=== PATIENT | male | born 1970 | race Caucasian/White ===

== ENCOUNTER 2017-06-20 21:19 | Inpatient (IN) ==
--- NOTE | 2017-06-20 21:31 | Emergency Department Note ---
Disposition Clinical Impression: Metastatic melanoma, Abdominal pain, Anemia, Hypokalemia, Elevated lipase, Pathological fracture in neoplastic disease, Melanoma Disposition: Admitted As Inpatient Referrals: Lashae Pop MD [Family Provider] - Zeus Bowen MD [Primary Care Provider] - Forms: ED Satisfaction Letter, Work/School Release General Adult HPI - General Chief complaint: ED Abdominal Pain Stated complaint: Abdominal Pain Time Seen by Provider: 06/20/17 21:30 Source: patient, family Limitations: no limitations - History of Present Illness HPI Narrative: 39-year-old male with a history of metastatic melanoma reports emergency department complaining of abdominal pain. He has had progressive abdominal pain over the last 4 days. There is no history of trauma or hernia, no flank pain or bloody urine. There has been no vomiting or diarrhea. The patient denies any chest pain. He describes some shortness of breath with exertion however. No cough coughing up blood or bleeding of any sort. No leg swelling or pain. The patient has had no fever. No difficulty moving the arms or legs and apparently. He is currently not anticoagulated. The patient does use opiate medication for pain control. There is no history of prior abdominal surgery. There is no history of rash or acute injury. The patient describes upper abdominal pain in general. No history of difficulty voiding. Pain Scale: 4 - Related Data Home Medications Medication Instructions Recorded Confirmed OXcarbazepine [Trileptal] 300 mg PO TID 04/21/17 06/21/17 Previous Rx's Medication Instructions Recorded Ondansetron [Zofran] 8 mg PO Q8HR PRN #60 tablet 05/15/17 FentaNYL PATCH [Duragesic] 50 mcg TD Q72H 3 Days #1 patch.td72 06/07/17 Allergies Allergy/AdvReac Type Severity Reaction Status Date / Time No Known Allergies Allergy Verified 06/20/17 21:21 All systems ED: reviewed and negative except as stated. Past Medical History - Past Medical History Medical history: Reports: asthma, cancer, kidney stones, seizures Surgical history: Reports: no surgical history Psychiatric history: Reports: no psych history - Social History Smoking Status: Never smoker Smokeless Tobacco Status: No Alcohol use: Reports: none Drug use: Reports: none Physical Exam - General Limitations: no limitations General appearance: alert, in no apparent distress - Head Head exam: atraumatic, normocephalic, normal inspection - Eye Eye exam: Present: normal appearance, PERRL, EOMI. Absent: scleral icterus, conjunctival injection, miosis, mydriasis - ENT ENT exam: normal exam, normal oropharynx, mucous membranes moist, TM's normal bilaterally, normal external ear exam - Neck Neck exam: Present: normal inspection, full ROM, trachea midline - Chest Chest inspection: Present: normal inspection, symmetric chest wall rise. Absent : tenderness - Respiratory Respiratory exam: Present: normal lung sounds bilaterally. Absent: respiratory distress, wheezes, accessory muscle use, prolonged expiratory phase - Cardiovascular Cardiovascular exam: Present: regular rate, normal rhythm, normal heart sounds - Abdominal Exam Abdominal exam: Present: soft, tenderness, distention, diminished bowel sounds. Absent: guarding, rebound, rigidity, Garcia's sign, tenderness at McBurney's Point, ascites, pulsatile mass Abdominal tenderness: Present: RUQ, LUQ, epigastrium, moderate - Extremities Exam Extremities exam: Present: normal inspection, full ROM. Absent: tenderness, normal capillary refill, pedal edema, joint swelling, calf tenderness - Expanded Lower Extremity Exam Lower leg exam: Absent: Homans' sign Neurovascular/Tendon exam: Present: normal capillary refill. Absent: motor deficit, sensory deficit, tendon deficit, extremity cold to touch, pallor - Back Exam Back exam: Present: normal inspection, full ROM. Absent: tenderness, CVA tenderness (R), CVA tenderness (L), vertebral tenderness - Neurological Exam Neurological exam: Present: alert, oriented X3, CN II-XII intact. Absent: motor sensory deficit - Psychiatric Psychiatric exam: Present: normal affect, normal mood - Skin Skin exam: Present: warm, dry, intact, normal color. Absent: rash, cyanosis, diaphoresis, erythema, pallor, mottled Course Vital Signs Temperature 98.1 F 06/20/17 21:21 Pulse Rate 137 06/20/17 21:21 Respiratory Rate 20 06/20/17 21:21 Blood Pressure 127/91 06/20/17 21:21 O2 Sat by Pulse Oximetry 96 06/20/17 21:21 Temperature 98.1 F 06/20/17 21:21 Pulse Rate 119 06/21/17 00:26 Respiratory Rate 16 06/21/17 00:26 Blood Pressure 139/104 06/21/17 00:26 O2 Sat by Pulse Oximetry 96 06/20/17 21:21 Oxygen Delivery Oxygen Delivery Room Air Medical Decision Making - MDM Narrative Medical decision making narrative: The patient appears to have worsening metastatic malignancy throughout the chest and abdomen, he appears to have sacral pathologic fractures as well as a pubic ramus pathologic fracture. The patient has not elevated lipase, is anemic , has hypokalemia and has been having significant discomfort. He has been tachycardic in the emergency department with elevated blood pressure, he has a fentanyl patch on his received 100 g of fentanyl and is still obtained no relief. Based on the patient's worsening malignancy despite oncologic treatment , pain uncontrolled on current regimen, and apparent new onset pathologic fractures, I thought it be appropriate to admit the patient to the hospital. He is agreeable. I reviewed the case with the oncologist bi solutions architect who concurs that admission for further evaluation and pain control would be appropriate under the medical service with oncologic consultation. I discussed the case with the hospitalist on-call who has accepted the patient to his care. He patient is currently stable pending admission. Persistent tachycardia has been noted. An EKG has been ordered but has not yet been obtained. The patient is not describing chest pain and I do not suspect PE or acute coronary syndrome, or sepsis, rather pain-related tachycardia. Further evaluation per the admitting physician and hospitalist team. - Lab Data Lab results reviewed: Yes I reviewed the patient's lab results. Result diagrams: 06/20/17 21:45 06/20/17 21:45 Lab Results 06/20/17 06/20/17 06/20/17 Range/Units 21:45 21:45 21:45 WBC 9.1 (4.3-11.1) K/mcL RBC 3.65 L (4.19-5.50) M/mcL Hgb 10.2 L (12.9-16.9) g/dL Hct 31.0 L (37.5-50.1) % MCV 84.9 (83.0-100.0) fL MCH 27.9 L (28.0-33.3) pg MCHC 32.9 (31.6-35.5) g/dL RDW 15.8 H (11.5-14.5) % Plt Count 172 (140-400) K/mcL MPV 10.1 (9.4-12.4) fL Seg Neutrophils % 64.0 % Band Neutrophils % 6.0 H (0-4) % Lymphocytes % 20.0 % Monocytes % 2.0 % Metamyelocytes % 4.0 H (0) % Myelocytes % 4.0 H (0) % Neutrophils # 6.4 (1.6-8.9) K/mcL Lymphocytes # 1.8 (0.6-4.6) K/mcL Monocytes # 0.2 (0.0-1.3) K/mcL Nucleated RBCs/100 WBC 0.2 H (0) /100 WBC Reactive Lymphocytes Present A (Not Present) Platelet Estimate Normal (Normal) PT 14.7 H (9.4-12.1) Seconds INR 1.4 APTT 25.8 L (26.0-36.0) Seconds Sodium 133 L (136-145) mEq/L Potassium 3.2 L (3.5-5.1) mEq/L Chloride 98 (98-107) mEq/L Carbon Dioxide 23 (23-29) mEq/L BUN 11 (6-20) mg/dL Creatinine 0.60 L (0.70-1.30) mg/dL Est GFR ( Amer) > 60 (> 60) Est GFR (Non-Af Amer) > 60 (> 60) BUN/Creatinine Ratio 18 (6-26) Glucose 121 H (70-105) mg/dL Calculated Osmolality 277 L (280-300) Lactic Acid (0.5-2.2) mmol/L Calcium 7.7 L (8.6-10.3) mg/dL Total Bilirubin 0.8 (0.3-1.0) mg/dL Direct Bilirubin 0.3 H (0.0-0.2) mg/dL Indirect Bilirubin 0.5 (0.0-1.2) mg/dL AST 25 (13-39) Units/L ALT 26 (7-52) Units/L Alkaline Phosphatase 321 H (34-104) Units/L Serum Total Protein 6.1 L (6.4-8.9) g/dL Albumin 2.9 L (3.5-5.7) g/dL Globulin 3.2 (2.4-3.5) g/dL Albumin/Globulin Ratio 0.9 L (1.1-2.2) Lipase 134 H (11-82) Units/L Urine Color (Yellow) Urine Clarity (Clear) Urine pH (5.0-8.0) pH Units Ur Specific [place] (1.010-1.025) Urine Protein (Neg-Trace) mg/dL Urine Glucose (UA) (Normal) mg/dL Urine Ketones (Negative) mg/dL Urine Blood (Negative) Urine Nitrite (Negative) Urine Bilirubin (Negative) Urine Urobilinogen (Normal) mg/dL Ur Leukocyte Esterase (Negative) Urine Microscopic RBC (0-3) per hpf Urine Microscopic WBC (0-3) per hpf Ur Squamous Epith Cells (None-Few) per lpf Urine Bacteria (None-Few) per hpf Hyaline Casts (None-Few) per lpf Ur Culture Indicated? (NO) 06/20/17 06/20/17 Range/Units 21:45 23:41 WBC (4.3-11.1) K/mcL RBC (4.19-5.50) M/mcL Hgb (12.9-16.9) g/dL Hct (37.5-50.1) % MCV (83.0-100.0) fL MCH (28.0-33.3) pg MCHC (31.6-35.5) g/dL RDW (11.5-14.5) % Plt Count (140-400) K/mcL MPV (9.4-12.4) fL Seg Neutrophils % % Band Neutrophils % (0-4) % Lymphocytes % % Monocytes % % Metamyelocytes % (0) % Myelocytes % (0) % Neutrophils # (1.6-8.9) K/mcL Lymphocytes # (0.6-4.6) K/mcL Monocytes # (0.0-1.3) K/mcL Nucleated RBCs/100 WBC (0) /100 WBC Reactive Lymphocytes (Not Present) Platelet Estimate (Normal) PT (9.4-12.1) Seconds INR APTT (26.0-36.0) Seconds Sodium (136-145) mEq/L Potassium (3.5-5.1) mEq/L Chloride (98-107) mEq/L Carbon Dioxide (23-29) mEq/L BUN (6-20) mg/dL Creatinine (0.70-1.30) mg/dL Est GFR ( Amer) (> 60) Est GFR (Non-Af Amer) (> 60) BUN/Creatinine Ratio (6-26) Glucose (70-105) mg/dL Calculated Osmolality (280-300) Lactic Acid 2.2 (0.5-2.2) mmol/L Calcium (8.6-10.3) mg/dL Total Bilirubin (0.3-1.0) mg/dL Direct Bilirubin (0.0-0.2) mg/dL Indirect Bilirubin (0.0-1.2) mg/dL AST (13-39) Units/L ALT (7-52) Units/L Alkaline Phosphatase (34-104) Units/L Serum Total Protein (6.4-8.9) g/dL Albumin (3.5-5.7) g/dL Globulin (2.4-3.5) g/dL Albumin/Globulin Ratio (1.1-2.2) Lipase (11-82) Units/L Urine Color Yellow (Yellow) Urine Clarity Clear (Clear) Urine pH 6.5 (5.0-8.0) pH Units Ur Specific [place] 1.027 H (1.010-1.025) Urine Protein Trace (Neg-Trace) mg/dL Urine Glucose (UA) Normal (Normal) mg/dL Urine Ketones Negative (Negative) mg/dL Urine Blood Negative (Negative) Urine Nitrite Negative (Negative) Urine Bilirubin Negative (Negative) Urine Urobilinogen Normal (Normal) mg/dL Ur Leukocyte Esterase Negative (Negative) Urine Microscopic RBC 0-3 (0-3) per hpf Urine Microscopic WBC 0-3 (0-3) per hpf Ur Squamous Epith Cells Many H (None-Few) per lpf Urine Bacteria None Seen (None-Few) per hpf Hyaline Casts None Seen (None-Few) per lpf Ur Culture Indicated? NO (NO) - Radiology Data Radiology results reviewed: Yes I reviewed the patient's radiology results.
[2017-06-20] MEDS ORDERED: 0.9 % Sodium Chloride 1,000 ML IVC ONE (21:33)
[2017-06-20 22:12] LABS: Hemoglobin 10.2 g/dL (12.9-16.9); Mean Corpuscular HGB Conc 32.9 g/dL (31.6-35.5); Mean Corpuscular Hemoglobin 27.9 pg (28.0-33.3); Mean Corpuscular Volume 84.9 fL (83.0-100.0); Mean Platelet Volume 10.1 fL (9.4-12.4); Nucleated Red Blood Cells 0.2 /100 WBC (0); Platelet Count 172 K/mcL (140-400); Red Blood Count 3.65 M/mcL (4.19-5.50); Red Cell Distribution Width 15.8 % (11.5-14.5)
[2017-06-20 22:21] LABS: INR 1.4; Prothrombin Time 14.7 Seconds (9.4-12.1)
[2017-06-20 22:24] LABS: Activated Partial Thrombo Time 25.8 Seconds (26.0-36.0)
[2017-06-20 22:26] LABS: Alanine Aminotransferase 26 Units/L (7-52); Albumin 2.9 g/dL (3.5-5.7); Albumin/Globulin Ratio 0.9 (1.1-2.2); Alkaline Phosphatase 321 Units/L (34-104); Aspartate Amino Transferase 25 Units/L (13-39); BUN/Creatinine Ratio 18 (6-26); Bilirubin,Direct 0.3 mg/dL (0.0-0.2); Bilirubin,Indirect 0.5 mg/dL (0.0-1.2); Bilirubin,Total 0.8 mg/dL (0.3-1.0); Blood Urea Nitrogen 11 mg/dL (6-20); Calcium 7.7 mg/dL (8.6-10.3); Carbon Dioxide 23 mEq/L (23-29); Chloride 98 mEq/L (98-107); Globulin 3.2 g/dL (2.4-3.5); Glucose 121 mg/dL (70-105); Lipase 134 Units/L (11-82); Osmolality,Calculated 277 (280-300); Potassium 3.2 mEq/L (3.5-5.1); Sodium 133 mEq/L (136-145); Total Protein 6.1 g/dL (6.4-8.9); eGFR For African Americans > 60 (> 60); eGFR For Non-African Americans > 60 (> 60)
[2017-06-20] MEDS ORDERED: *HR* FentaNYL (PF) 100 MCG/2 ML VIAL IVP ONE (22:26)
[2017-06-20] MEDS ORDERED: Ondansetron 4 MG/2 ML VIAL IVP ONE (22:26)
[2017-06-20 22:38] LABS: Lymphocytes # 1.8 K/mcL (0.6-4.6); Monocytes # 0.2 K/mcL (0.0-1.3); Neutrophils # 6.4 K/mcL (1.6-8.9)
[2017-06-20 22:42] LABS: Platelet Estimate Normal (Normal); Reactive Lymphocytes Present (Not Present)
[2017-06-21] MEDS ORDERED: *HR* FentaNYL (PF) 100 MCG/2 ML VIAL IVP ONE (00:10)
[2017-06-21 00:17] LABS: Bilirubin,Urine Negative (Negative); Blood,Urine Negative (Negative); Clarity,Urine Clear (Clear); Color,Urine Yellow (Yellow); Glucose,Urine (UA) Normal (Normal); Ketones,Urine Negative (Negative); Leukocyte Esterase,Urine Negative (Negative); Nitrite,Urine Negative (Negative); PH,Urine 6.5 pH Units (5.0-8.0); Protein,Urine Trace mg/dL (Neg-Trace); Specific Gravity,Urine 1.027 (1.010-1.025); Urobilinogen,Urine Normal (Normal)
[2017-06-21 00:19] LABS: Bacteria,Urine None Seen per hpf (None-Few); Hyaline Casts,Urine None Seen per lpf (None-Few); RBC,Urine 0-3 per hpf (0-3); Squamous Epithelial Cell,Urine Many per lpf (None-Few); WBC,Urine 0-3 per hpf (0-3)
[2017-06-21] MEDS ORDERED: *HR* LORazepam 2 MG/ML VIAL IVP ONE (00:38)
[2017-06-21] MEDS ORDERED: Acetaminophen 325 MG TABLET PO PRN ×2 (01:23→02:14)
[2017-06-21] MEDS ORDERED: Naloxone 0.4 MG/ML INJ IVP PRN ×2 (01:23→02:14)
[2017-06-21] MEDS ORDERED: Morphine Oral CONC 5 MG/0.25 ML ORAL.SYG PO PRN ×3 (01:41→02:32)
[2017-06-21] MEDS ORDERED: *HR* FentaNYL (PF) 100 MCG/2 ML VIAL IVP PRN ×2 (01:41→02:14)
[2017-06-21] MEDS ORDERED: 0.9 % Sodium Chloride 1,000 ML IVC SCH ×2 (01:45→10:15)
[2017-06-21] MEDS ORDERED: metroNIDAZOLE 500 MG TABLET PO SCH ×2 (01:45→02:15)
[2017-06-21] MEDS ORDERED: Ondansetron 4 MG/2 ML VIAL IVP PRN ×2 (01:47→02:15)
--- NOTE | 2017-06-21 01:58 | Internal Med History&Physical ---
<Khang Brown Traci - Last Filed: 06/21/17 01:49> Date of Encounter: 06/21/17 Time of Encounter: 00:25 Assessment and Plan (1) Pathological fracture in neoplastic disease Status: Acute Patient presented with back pain and abdominal pain in the setting of stage IV metastatic melanoma. CT shows progression of metastatic disease in his chest, abdomen, and pelvis with increasing size in number of lesions. - Fracture of the right sacrum and right inferior pubic ramus. Patient is admitted for pain control and further oncological evaluation. Continue fentanyl patch. Add Roxanol and IV fentanyl as needed for pain. MiraLAX and senna plus for bowel regimen. We will make patient NPO and provide IV fluids with D5 half-normal saline. Consult oncology for further evaluation and management. Qualifiers: Site of pathological fracture: other site Encounter type: initial encounter Qualified Code(s): M84.58XA - Pathological fracture in neoplastic disease, other specified site, initial encounter for fracture (2) Metastatic melanoma Status: Acute Plan as above. (3) Enteritis Status: Acute Patient reports that his abdomen is more distended, diffuse tenderness. No peritoneal signs. CTA shows mural thickening involving the terminal ileum, compatible with enteritis. Consider metastatic exertion extension as well. Will make patient NPO, provide pain control, provide nausea control, and place on Flagyl. (4) Elevated lipase Status: Acute Lipase is elevated at 134. Patient symptoms and imaging did not suggest pancreatitis. Trend lipase and continue to follow patient's symptoms. (5) Hypokalemia Status: Acute Potassium 3.2. Will replace. Likely secondary to poor PO intake. Check magnesium in the morning. (6) DVT prophylaxis Status: Acute Subcutaneous heparin Internal Medicine - H&P: HPI Chief complaint: Abdominal Pain Admitted From: Emergency Dept History of present illness: Mr. Hale is a 47 year old male with PMH of metastatic melanoma stage IV, and seizures, presented to the emergency department with complaint of a 5-6 day history of abdominal pain and a 2-3 week history of low back pain. He states that his abdominal pain is diffuse, and he feels that his belly is more distended and tight and normal. He denies any aggravating or alleviating factors. Associated symptoms include some dry heaving and dyspnea while sitting and on exertion. He reports no changes in bowel habits. Deniesnausea, vomiting, hematochezia, or melena. No prior abdominal surgery. He states that his back pain has gradually been getting worse. He denies any injury or trauma to the area. He will intermittently get some radiating pain down into his legs. He denies any weakness, numbness, tingling, loss of sensation. Denies any loss of bowel or bladder function. Denies other complaints. Denies fevers , chills, syncope, falls, headache, change in vision, chest pain, cough, hematemesis, dysuria, hematuria, leg pain/swelling. Does report that he has been on immunotherapy and follows with [facility]. Past Med Surg Social Fam HX - Past Medical History Medical history: asthma, cancer, kidney stones, seizures Psychiatric history: no psych history - Past Surgical History Surgical History: no surgical history - Social History Smoking Status: Never smoker Smokeless Tobacco Status: No Alcohol use: none Drug use: none Internal Medicine - H&P: Meds OXcarbazepine [Trileptal] 300 mg PO TID 04/21/17 [History] Ondansetron [Zofran] 8 mg PO Q8HR PRN #60 tablet 05/15/17 [Rx] FentaNYL PATCH [Duragesic] 50 mcg TD Q72H 3 Days #1 patch.td72 06/07/17 [Rx] 3 Allergy/AdvReac Type Severity Reaction Status Date / Time No Known Allergies Allergy Verified 06/20/17 21:21 All Systems PM: A 10-system review of systems was performed and is negative for pertinent findings except as documented above in the HPI. - Constitutional Vitals: Temp Pulse Resp BP Pulse Ox 98.1 F 119 16 139/104 96 06/20/17 21:21 06/21/17 00:26 06/21/17 00:26 06/21/17 00:26 06/20/17 21:21 General appearance: Present: mild distress, A&O X 3, answers questions appropriately - Head Head exam: Present: atraumatic, normocephalic - Eye Eye exam: Present: EOMI, PERRL, conjuntiva pink, sclera anicteric - Neck Neck exam general surgery: Present: supple, trachea midline. Absent: lymphadenopathy - Respiratory Respiratory exam: Present: CTAB. Absent: accessory muscle use, rales, rhonchi, wheezes - Cardiovascular Cardiovascular exam: Present: RRR, +S1, +S2. Absent: diastolic murmur, systolic murmur - GI/Abdominal GI/Abdominal exam: Present: distended, firm, normal bowel sounds, soft, tenderness (diffuse), no peritoneal signs. Absent: rebound, rigid - Extremities Exam Extremities exam: Present: pedal edema (Mild bilaterally), warm, radial pulses palpable and symmetrical. Absent: calf tenderness, cyanotic - Back Exam Back exam: Present: tenderness (diffusely across lower back, not well localized) . Absent: full ROM - Neurological Exam Neurological exam: Present: CN II-XII intact, oriented X3, no focal deficits. Absent: facial droop, speech deficit - Skin Skin exam: Present: dry, intact Internal Med - H&P Results - Labs CBC & Chem 7: 06/20/17 21:45 06/20/17 21:45 Labs: Short CBC 06/20/17 Range/Units 21:45 WBC 9.1 (4.3-11.1) K/mcL Hgb 10.2 L (12.9-16.9) g/dL Hct 31.0 L (37.5-50.1) % Plt Count 172 (140-400) K/mcL Neutrophils # 6.4 (1.6-8.9) K/mcL BMP 06/20/17 21:45 Sodium 133 L Potassium 3.2 L Chloride 98 Carbon Dioxide 23 BUN 11 Creatinine 0.60 L Glucose 121 H Calcium 7.7 L Liver Function 06/20/17 Range/Units 21:45 Total Bilirubin 0.8 (0.3-1.0) mg/dL Direct Bilirubin 0.3 H (0.0-0.2) mg/dL AST 25 (13-39) Units/L ALT 26 (7-52) Units/L Alkaline Phosphatase 321 H (34-104) Units/L Albumin 2.9 L (3.5-5.7) g/dL Urine 06/20/17 Range/Units 23:41 Urine Color Yellow (Yellow) Urine Clarity Clear (Clear) Urine pH 6.5 (5.0-8.0) pH Units Ur Specific [place] 1.027 H (1.010-1.025) Urine Protein Trace (Neg-Trace) mg/dL Urine Glucose (UA) Normal (Normal) mg/dL - Impressions ITS Impressions Abdomen/Pelvis CT 06/20/17 21:34 IMPRESSION: 1. Marked mural thickening involving the terminal ileum, compatible with enteritis. Metastatic extension to the bowel would be considered as well. 2. Marked progression of metastatic disease throughout the chest abdomen pelvis. 3. Evidence of pathologic fractures involving the rightward aspect of the sacrum and the right inferior pubic ramus. D/ / Chris Sidhu MD / Chris Sidhu MD Interpreting Provider: Chris Sidhu MD Chest CT 06/20/17 21:36 IMPRESSION: 1. Marked mural thickening involving the terminal ileum, compatible with enteritis. Metastatic extension to the bowel would be considered as well. 2. Marked progression of metastatic disease throughout the chest abdomen pelvis. 3. Evidence of pathologic fractures involving the rightward aspect of the sacrum and the right inferior pubic ramus. D/ / Chris Sidhu MD / Chris Sidhu MD Interpreting Provider: Chris Sidhu MD <Kaushal Burnham - Last Filed: 06/21/17 03:32> Date of Encounter: 06/21/17 Internal Medicine - H&P: HPI History of present illness: Mr. Hale is a 47 year old male All Systems PM: A 10-system review of systems was performed and is negative for pertinent findings except as documented above in the HPI. - Constitutional Vitals: Temp Pulse Resp BP Pulse Ox 98.1 F 119 16 139/104 96 06/20/17 21:21 06/21/17 00:26 06/21/17 00:26 06/21/17 00:26 06/20/17 21:21 Internal Med - H&P Results - Labs CBC & Chem 7: 06/20/17 21:45 06/20/17 21:45 - Attending Attestation I examined this patient and my medical decision-making was reviewed with the Resident Physician Dr. Brown. I agree with the documented findings, disposition and treatment plan as described except to the extent set forth below. Mr. Hale is 47 y/o M with known stage 4 melanoma with mets into Liver, and Bones , who is following with [facility] and Radio oncologist as an out pt presented to ER today c/o worsening abdominal pain. His CT of abdomen showed enteritis and metastatic disease through out the chest and abdomen. Also noticed sacral pathological fx Gen: In mild distress with pain..A,A, O x 3 Chest: Diminished BS b/l no crackles Heart: S1s2+ Abd: Soft, tender christo umbilical and RUQ region a/p 1. Acute intractable Abdominal pain 2. Acute enteritis - mostly viral 3. Worsening metastatic stage 4 melanoma Ca 4. Sacral pathological fx Aggressive pain management Heme Onc consulted Stool softeners for constipation empirical abx Flagyl for enteritis
[2017-06-21] MEDS ORDERED: *HR* FentaNYL PATCH 50 MCG PATCH TD SCH (02:00)
[2017-06-21] MEDS ORDERED: D5% in 0.45% NACL 1,000 ML IVC SCH (02:00)
[2017-06-21] MEDS ORDERED: Sennosides/Docusate Sodium TABLET PO PRN ×2 (02:00→02:15)
[2017-06-21] MEDS ORDERED: Potassium Chloride 40 MEQ, Lidocaine 1% 2 ML in D5% in Water 500 ML IVPB ONE ×2 (02:02→02:15)
[2017-06-21] MEDS: *HR* FentaNYL PATCH 50 MCG PATCH TD SCH (02:49)
[2017-06-21] MEDS: *HR* FentaNYL (PF) 100 MCG/2 ML VIAL IVP PRN ×4 (05:17→21:22)
[2017-06-21] MEDS: *HR* Heparin 5,000 UNIT/ML VIAL SQ SCH ×3 (05:23→21:23)
[2017-06-21] MEDS ORDERED: *HR* Heparin 5,000 UNIT/ML VIAL SQ SCH (06:00)
[2017-06-21] MEDS ORDERED: Sennosides/Docusate Sodium TABLET PO SCH (09:00)
[2017-06-21] MEDS ORDERED: OXcarbazepine 150 MG TABLET PO SCH (09:00)
[2017-06-21] MEDS: D5% in 0.45% NACL 1,000 ML IVC SCH (09:35)
--- NOTE | 2017-06-21 10:10 | Event Note ---
Date of Encounter: 06/21/17 Time of Encounter: 10:08 1. Sepsis 2ry to acute duodenitis 6% bands, HR 120s, lactic acid 2.2 start Cipro IV, continue IV flagyl recheck lactic acid IVF 2. Metastatic melanoma, severe disease mets both lungs, liver, spleen, with patologic fractures has received chemo, radiotherapy and immunotherapy requested to see Oncology 3. hypokalemia replete in IVF
[2017-06-21] MEDS: OXcarbazepine 150 MG TABLET PO SCH ×3 (11:21→21:23)
[2017-06-21] MEDS: *HR* Morphine Soln 10 MG/5 ML UDC PO PRN ×2 (11:45→17:52)
[2017-06-21] MEDS ORDERED: 0.9 % Sodium Chloride 500 ML IVC ONE (12:38)
--- NOTE | 2017-06-21 16:17 | Oncology Inp Consult Note ---
<Grace Henderson L - Last Filed: 06/21/17 16:57> Date of Encounter: 06/21/17 Time of Encounter: 13:00 Assessment and Plan (1) Metastatic melanoma Status: Acute Assessment and plan: Metastatic melanoma, stage IV mets to bone, lung and liver lesions, rt axillary adenopathy Started C1 nivolumab 05/09/17, C2 05/23/2017, C3 06/07/2017. He also received palliative RT from 05/11/2017 - 05/24/2017 to Right shoulder ( including T2-T4) and L4-S3, 3000 cGy to each site. He also receives Denosumab for bone health and prevention of SRE Q4 weeks, last received 06/07/17. Dr. Reynaga, treating oncologist, discussed CT imaging consistent with disease progression with patient and patients today at bedside. Considering his progression and aggressive nature of his disease, the decision was made to change treatment at this time. He is BRAF positive and a candidate for dabrafenib and trametinib therapy. This has already been ordered by Dr. Reynaga , outpatient pharmacist team is working to have this medication approved and shipped potentially overnight or denise. Once received he will plan to start medication. May plan to revisit immunotherapy with nivolumab in future, at this time nivolumbab is stopped. Continue pain control regimen with Fentanyl TD, fentanyl IVP and morphine 10 mg PO PRN. Titrate as needed. Reports adequate pain control at this time. (2) Enteritis Status: Acute Assessment and plan: CT of the abdomen and pelvis reveals marked mural thickening involving the terminal ileum, compatible with enteritis. He does report abdominal pain, distention and dry heaves, denies diarrhea or vomiting. He is tachycardic and in sepsis workup per primary team. 6% bands, HR 120s, He is on cipro and flagyl. Continue IVF. repeat lactic acid 1.5 He has received 3 cycles of immunotherapy with nivolumab and immune mediated side effects such as colitis should remain in differential, however his pain is likely also secondary to his progression, and he does not report any history of diarrhea. Will hold off on treatment with steroids at this time and continue to monitor. Please refer to Dr. Campos attestation below for additional details. - Data of Consult Patient: known to practice within the last 3 years Consult date: 06/21/17 Requesting Physician: Edd Chauhan MD Primary Care Provider: Zeus Park Family Provider: Lashae Pop - Consult Narrative Reason for consult: metastatic melanoma, stage IV History of present illness: Mr. Hale is a 47 year old male with metastatic melanoma, stage IV mets to bone, lung and liver lesions, rt axillary adenopathy Started C1 nivolumab 05/09/17, C2 05/23/2017, C3 06/07/2017. He also received palliative RT from 05/11/2017 - 05/24/2017 to Right shoulder ( including T2-T4) and L4-S3, 3000 cGy to each site. He takes Megace for appetite. He also receives Denosumab for bone health and prevention of SRE Q4 weeks , last received 06/07/17. He is BRAF positive and a candidate for dabrafenib, trametinib therapy. He presented to [facility] ER on 06/20/2017 with complaint of a 5-6 day history of abdominal pain with distention and associated dry heaving along with 2-3 week history of worsening lower back pain. CT chest, abdomen and pelvis with contrast reveals "marked mural thickening involving the terminal ileum, compatible with enteritis, Marked progression of metastatic disease throughout the chest abdomen pelvis and Evidence of pathologic fractures involving the rightward aspect of the sacrum and the right inferior pubic ramus." He has been admitted for pathological fracture pain control and treatment for enteritis. Past Med Surg Social Fam HX - Past Medical History Medical history: asthma, cancer, kidney stones, seizures Psychiatric history: no psych history - Past Surgical History Surgical History: no surgical history - Social History Smoking Status: Never smoker Smokeless Tobacco Status: No Alcohol use: none Drug use: none - Family History Mother Age at : 55 Cause of : Cancer Medications and Allergies OXcarbazepine [Trileptal] 300 mg PO TID 04/21/17 [History] Ondansetron [Zofran] 8 mg PO Q8HR PRN #60 tablet 05/15/17 [Rx] FentaNYL PATCH [Duragesic] 50 mcg TD Q72H 3 Days #1 patch.td72 06/07/17 [Rx] 3 Allergy/AdvReac Type Severity Reaction Status Date / Time No Known Allergies Allergy Verified 06/20/17 21:21 Constitutional: Present: anorexia. Absent: chills, fatigue, fever(s), frequent falls, weakness Eyes: Absent: change in vision Nose, mouth and throat: Absent: dysphagia Cardiovascular: Absent: chest pain, irregular heart rhythm, palpitations Respiratory: Present: dyspnea on exertion. Absent: cough Gastrointestinal: Present: as per HPI, abdominal pain, bloating. Absent: change in bowel habits, diarrhea, fecal incontinence, melena, nausea, vomiting Additional comments: denies dysuria or hematuria Musculoskeletal: Present: muscle weakness Integumentary: Absent: wounds Neurological: Absent: focal weakness, frequent falls Psychiatric: Present: change in appetite Hematologic/Lymphatic: Present: as per HPI Oncology - Exam - Constitutional Vitals: Temp Pulse Resp BP Pulse Ox 98.0 F 135 17 136/93 98 06/21/17 11:41 06/21/17 11:41 06/21/17 11:41 06/21/17 11:41 06/21/17 11:41 General appearance: cooperative, no acute distress, no febrile - Head Head exam: Present: atraumatic - ENT ENT exam: Present: mucous membranes moist - Respiratory Respiratory exam: Present: CTAB. Absent: respiratory distress - Cardiovascular Cardiovascular exam: Present: RRR, +S1, +S2, tachycardia - GI/Abdominal GI/Abdominal exam: Present: distended, normal bowel sounds, tenderness - Extremities Exam Extremities exam: Present: normal inspection. Absent: calf tenderness - Neurological Exam Neurological exam: Present: alert, oriented X3, no focal deficits, strengths equal and symetr throughout - Psychiatric Psychiatric exam: Present: normal affect, normal mood - Skin Skin exam: Present: dry, intact, normal color, warm Consult Discharge Plan - Plan Referrals: Zeus Bowen MD [Primary Care Provider] - Lashae Pop MD [Family Provider] - <Zeus Bowen - Last Filed: 06/22/17 08:31> Date of Encounter: 06/22/17 - Data of Consult Requesting Physician: Edd Chauhan MD Primary Care Provider: Zeus Park Family Provider: Lashae Pop - Consult Narrative History of present illness: Mr. Hale is a 47 year old male with metastatic melanoma on immunotherapy hospitalized with abdominal, back pain. Ct CAP showing progression of metastatic disease. He is hospitalized for pain control and to r/o sepsis. Abd symptoms have not worsened since hospitalization, enteritis due to progression possibility. Will start alternative therapy with BRAF/MEK inhibition once oral meds are available. He is s/p palliative RT to lumbar spine and rt shoulder metastatic lesions, with pathological fracture of sacrum and pubic ramus. I examined this patient and my medical decision-making was reviewed with the Advanced Practice Nurse, Grace Henderson. I agree with the documented findings, disposition and treatment plan as described except to the extent set forth below. Oncology - Exam - Constitutional Vitals: Temp Pulse Resp BP Pulse Ox 98.3 F 123 16 146/97 97 06/22/17 06:30 06/22/17 06:30 06/22/17 06:30 06/22/17 06:30 06/22/17 06:30 Oncology - Results Labs: Short CBC 06/22/17 Range/Units 01:27 WBC 7.6 (4.3-11.1) K/mcL Hgb 8.6 L D (12.9-16.9) g/dL Hct 27.0 L (37.5-50.1) % Plt Count 127 L (140-400) K/mcL BMP 06/22/17 01:27 Sodium 133 L Potassium 3.4 L Chloride 101 Carbon Dioxide 24 BUN 7 Creatinine 0.61 L Glucose 127 H Calcium 6.5 L
[2017-06-21] MEDS: Piperacillin/Tazobactam 3.375 GM in 0.9 % Sodium Chloride Mini Bag 100 ML IVPB SCH (18:39)
[2017-06-22] MEDS: Piperacillin/Tazobactam 3.375 GM in 0.9 % Sodium Chloride Mini Bag 100 ML IVPB SCH ×5 (00:01→23:18)
[2017-06-22] MEDS: *HR* Morphine Soln 10 MG/5 ML UDC PO PRN ×5 (00:02→22:43)
[2017-06-22 02:02] LABS: Mean Corpuscular HGB Conc 31.9 g/dL (31.6-35.5); Mean Corpuscular Hemoglobin 27.4 pg (28.0-33.3); Mean Platelet Volume 10.1 fL (9.4-12.4); Platelet Count 127 K/mcL (140-400); Red Blood Count 3.14 M/mcL (4.19-5.50); Red Cell Distribution Width 15.8 % (11.5-14.5)
[2017-06-22 02:06] LABS: Hemoglobin 8.6 g/dL (12.9-16.9)
[2017-06-22 02:18] LABS: BUN/Creatinine Ratio 11 (6-26); Blood Urea Nitrogen 7 mg/dL (6-20); Calcium 6.5 mg/dL (8.6-10.3); Carbon Dioxide 24 mEq/L (23-29); Chloride 101 mEq/L (98-107); Glucose 127 mg/dL (70-105); Osmolality,Calculated 276 (280-300); Potassium 3.4 mEq/L (3.5-5.1); Sodium 133 mEq/L (136-145); eGFR For African Americans > 60 (> 60); eGFR For Non-African Americans > 60 (> 60)
[2017-06-22] MEDS: *HR* Heparin 5,000 UNIT/ML VIAL SQ SCH ×4 (05:45→21:23)
[2017-06-22] MEDS: OXcarbazepine 150 MG TABLET PO SCH ×3 (09:22→21:23)
[2017-06-22] MEDS: *HR* FentaNYL (PF) 100 MCG/2 ML VIAL IVP PRN ×2 (09:23→15:29)
--- NOTE | 2017-06-22 09:40 | Internal Med Progress Note ---
<Coleman Guzman - Last Filed: 06/22/17 09:37> Date of Encounter: 06/22/17 Time of Encounter: 09:37 - Assessment and plan (1) Sepsis Current Visit: Yes Status: Acute Assessment and plan: 2nd enteritits unknown organism Presented with 6% bandemia, tachycardic. Continues to be tachycardic Initially treated with ciprofloxacin and Flagyl now on Zosyn. Qualifiers: Sepsis type: sepsis due to unspecified organism Qualified Code(s): A41.9 - Sepsis, unspecified organism (2) Enteritis Current Visit: Yes Status: Acute Assessment and plan: CT of abdomen pelvis shows mural thickening involving the terminal ileum compatible with enteritis and extensive metastatic disease of the bowel. We will order stool panel Continue antibiotics as stated above. Patient's abdominal pain has considerably improved. Patient denies nausea, vomiting, diarrhea. (3) Metastatic melanoma Current Visit: Yes Status: Acute Assessment and plan: Patient has history of melanoma on admission CT of the chest and abdomen pelvis showed metastasis to liver, adrenal gland, bowel, bone, lungs. Oncology consulted and plan is to start on new treatment as soon as possible. Patient is placed on fentanyl TD, fentanyl IVP and morphine tumorous by mouth when necessary for pain control. Appreciate recommendations. (4) DVT prophylaxis Current Visit: Yes Status: Acute Assessment and plan: Heparin subcutaneous (5) Hypokalemia Current Visit: Yes Status: Acute Assessment and plan: Potassium 3.4 replace today with 40 meq (6) Hx of seizure disorder Current Visit: Yes Status: Acute Assessment and plan: History of seizure disorder continue home medication. (7) Anemia Current Visit: Yes Status: Acute Assessment and plan: Presented with hemoglobin of 10.2 and after IV fluids is now 8.6. This drop is likely diagnosed no. insetting of metastatic melanoma Peripheral blood smear shows normochromic normocytic anemia. We will check iron panel and B12, folic acid. No signs of bleeding on exam. If the anemia continues to worsen will replace if hemoglobin less than 7. Qualifiers: Anemia type: unspecified type Qualified Code(s): D64.9 - Anemia, unspecified (8) Severe protein-calorie malnutrition Current Visit: Yes Status: Acute Assessment and plan: nutrition on board started supplemental nutrition (9) Pathological fracture in neoplastic disease Current Visit: Yes Status: Acute Assessment and plan: CT shows fracture of the right sacrum and right inferior pubic ramus. continue pain regimen as above Qualifiers: Site of pathological fracture: pelvis Encounter type: initial encounter Qualified Code(s): M84.550A - Pathological fracture in neoplastic disease, pelvis, initial encounter for fracture (10) Sinus tachycardia Current Visit: Yes Status: Acute Assessment and plan: 2nd to pain from metastatic disease and sepsis from enteritis improved from yesterday but not resolved telemetry shows sinus tachycardia. will give lopressor 5mg iv once. - Subjective Interval history: Patient reports his abdominal pain has improved considerably. He is tolerating his diet. He denies nausea vomiting diarrhea. He has lower extremity swelling secondary to IV fluids. Patient denies headache, chest pain, shortness of breath. He denies problems with urination or bowel movements. - Constitutional Vitals: Temp Pulse Resp BP Pulse Ox 98.3 F 123 16 146/97 97 06/22/17 06:30 06/22/17 06:30 06/22/17 06:30 06/22/17 06:30 06/22/17 06:30 General appearance: Present: mild distress, A&O X 3, answers questions appropriately - Other Additional findings: General: without distress HEENT: Moist mucous membrane Heart: Sinus tachycardia Lungs: Clear to auscultation bilaterally Abdomen: Soft nontender, nondistended positive bowel sounds Skin: warm and dry Extremities: 1+ pedal edema bilaterally Neuro: Alert oriented 3 Vascular: Pedal and radial pulses 2 out of 4 Internal Medicine: Result - Labs CBC & Chem 7: 06/22/17 01:27 06/22/17 01:27 Labs: Short CBC 06/22/17 Range/Units 01:27 WBC 7.6 (4.3-11.1) K/mcL Hgb 8.6 L D (12.9-16.9) g/dL Hct 27.0 L (37.5-50.1) % Plt Count 127 L (140-400) K/mcL BMP 06/22/17 01:27 Sodium 133 L Potassium 3.4 L Chloride 101 Carbon Dioxide 24 BUN 7 Creatinine 0.61 L Glucose 127 H Calcium 6.5 L - ABG Interpretation ABG results: PT/INR, D-dimer PT 14.7 Seconds (9.4-12.1) H 06/20/17 21:45 Consult Discharge Plan - Plan Referrals: Lashae Pop MD [Family Provider] - Zeus Bowen MD [Primary Care Provider] - <Carlos Hercules - Last Filed: 06/22/17 15:21> Date of Encounter: 06/22/17 - Constitutional Vitals: Temp Pulse Resp BP Pulse Ox 98.7 F 119 16 148/97 97 06/22/17 12:45 06/22/17 12:45 06/22/17 12:45 06/22/17 12:45 06/22/17 12:45 Internal Medicine: Result - Labs CBC & Chem 7: 06/22/17 01:27 06/22/17 01:27 Labs: Short CBC 06/22/17 Range/Units 01:27 WBC 7.6 (4.3-11.1) K/mcL Hgb 8.6 L D (12.9-16.9) g/dL Hct 27.0 L (37.5-50.1) % Plt Count 127 L (140-400) K/mcL BMP 06/22/17 01:27 Sodium 133 L Potassium 3.4 L Chloride 101 Carbon Dioxide 24 BUN 7 Creatinine 0.61 L Glucose 127 H Calcium 6.5 L - ABG Interpretation ABG results: PT/INR, D-dimer PT 14.7 Seconds (9.4-12.1) H 06/20/17 21:45 - Attending Attestation I performed an independent interview and examine this patient. I agree with the findings, assessment, and plan of Dr. Guzman, internal medicine resident. This is an unfortunate 47-year-old male with metastatic melanoma admitted for enteritis. He is on Cipro and Flagyl for concerns for infectious enteritis, which was now changed to Zosyn. There is some concern that this could also be malignancy causing the same appearance. Patient states she is feeling better today. He remains tachycardic and he is receiving ongoing IV fluids. His imaging showed unfortunately, worsening of his metastatic disease and oncology is following, and arranging for further chemotherapy. Answered all questions as best I could, and discussed the case with the patient and his . I input is reflected in Dr. Guzman's note. All else as outlined above.
[2017-06-22] MEDS ORDERED: Potassium Chloride Elixir 20 MEQ/15 ML UDC PO ONE (09:51)
[2017-06-22] MEDS ORDERED: *HR* Metoprolol 5 MG/5 ML VIAL IVP ONE (09:55)
--- NOTE | 2017-06-22 15:26 | Oncology Inp Progress Note ---
Date of Encounter: 06/22/17 Time of Encounter: 13:00 (1) Metastatic melanoma Current Visit: Yes Status: Acute Assessment and plan: Metastatic melanoma, stage IV mets to bone, lung and liver lesions, rt axillary adenopathy Started C1 nivolumab 05/09/17, C2 05/23/2017, C3 06/07/2017. He also received palliative RT from 05/11/2017 - 05/24/2017 to Right shoulder ( including T2-T4) and L4-S3, 3000 cGy to each site. He also receives Denosumab for bone health and prevention of SRE Q4 weeks, last received 06/07/17. Considering his progression and aggressive nature of his disease, the decision was made to change treatment at this time. May plan to revisit immunotherapy with nivolumab in future, at this time nivolumbab is stopped. He is BRAF positive and a candidate for dabrafenib and trametinib therapy. He will likely plan to start therapy as soon as medication is available (about 48 hours). Today I gave chemo education for dabrafenib and trametinib therapy to patient and patients at bedside. Verbal education was provided in addition to handouts with written information. General safety and precaution details were reviewed along with when to present to ER or when to notify clinic. Common side effects for dabrafenib and were reviewed which includes but is not limited to hyperglycemia, headache, hyperkeratosis and hypophosphatemia, among others. Common side effects for Trametinib were reviewed which includes elevated AST/ALT, rash, diarrhea, hypoalbuminemia, anemia and lymphedema, among others. The patient/patients were given handouts which included a list of all common and less common side effects. Patient instructed to report and new or concerning symptoms to provider team while taking these medications. Prior to initiating therapy, will need echocardiogram to establish baseline LVEF due to risk for cardiomyopathy while taking these medications. He will then plan to have repeat echos in 1 month and every 2-3 months thereafter while on medications. Continue pain control regimen with Fentanyl TD, fentanyl IVP and morphine 10 mg PO PRN. May need to titrate fentanyl patch dose to allow proper pain control without IV medication in preparation for discharge home. Reports adequate pain control at this time, he is able to ambulate to bathroom. (2) Enteritis Current Visit: Yes Status: Acute Assessment and plan: CT of the abdomen and pelvis reveals marked mural thickening involving the terminal ileum, compatible with enteritis. He does report abdominal pain, distention and dry heaves, denies diarrhea or vomiting. He is tachycardic and in sepsis workup per primary team. 6% bands, HR 120s, He is on cipro, zosyn and flagyl. Continue IVF. His symptoms appear to be improving with above therapy and therefore less likely immune mediated. Dr. Reynaga recommends on holding off on steroid treatment at this time given his improvement in symptoms. No BM since Monday, he is taking miralax. May give PRN senna if needed. Oncology: Subj Interval history: Mr. Hale is resting in bed. Pain controlled at this time. His is at bedside. Chemo education given at bedside as detailed in HPI. - Constitutional Vitals: Vital Signs Temp Pulse Resp BP Pulse Ox 06/22/17 12:45 98.7 F 119 16 148/97 97 06/22/17 06:30 98.3 F 123 16 146/97 97 06/22/17 03:56 99.5 F 123 18 144/103 95 06/22/17 00:09 98.6 F 125 16 143/100 94 06/21/17 19:28 98.8 F 131 17 143/95 95 Intake and Output 06/21/17 06/22/17 06/22/17 23:59 07:59 15:59 Intake Total 100 / 950 1100 / 1100 340 / 340 Output Total 750 / 750 300 / 300 Balance 100 / 950 350 / 350 40 / 40 Intake: IV Fluids 100 / 100 1100 / 1100 100 / 100 KCl 10 MEQ In 0.9 % Sodium 1000 / 1000 Chloride 1,000 ML @ 175 mls/hr IVC .[id number] SHRUTHI Rx#:[id number] Zosyn 3.375 GM In 0.9 % Sodium 100 / 100 100 / 100 100 / 100 Chloride (Mini-Bag +) 100 ML @ 25 mls/hr IVPB Q6HR SHRUTHI Rx#: [id number] Oral 240 / 240 Output: Urine 750 / 750 300 / 300 Other: Meal Lunch Percent of Meal Consumed 0% # Voids 1 1 Weight 100.7 kg Patient Weight 06/22/17 23:59 Weight 100.7 kg Oncology: Obj Data - Labs CBC & Chem 7: 06/22/17 01:27 06/22/17 01:27 Labs: Laboratory Results - last 24 hr 06/22/17 06/22/17 01:27 01:27 WBC 7.6 RBC 3.14 L Hgb 8.6 L D Hct 27.0 L MCV 86.0 MCH 27.4 L MCHC 31.9 RDW 15.8 H Plt Count 127 L MPV 10.1 Sodium 133 L Potassium 3.4 L Chloride 101 Carbon Dioxide 24 BUN 7 Creatinine 0.61 L Est GFR ( Amer) > 60 Est GFR (Non-Af Amer) > 60 BUN/Creatinine Ratio 11 Glucose 127 H Calculated Osmolality 276 L Calcium 6.5 L - ABG Interpretation ABG results: PT/INR, D-dimer PT 14.7 Seconds (9.4-12.1) H 06/20/17 21:45 Consult Discharge Plan - Plan Referrals: Lashae Pop MD [Family Provider] - Zeus Bowen MD [Primary Care Provider] -
[2017-06-23 02:24] LABS: Basophils % 0.4 %; Eosinophils % 0.3 %; Hematocrit 26.7 % (37.5-50.1); Hemoglobin 8.7 g/dL (12.9-16.9); Immature Granulocytes % 7.6 % (0-4); Lymphocytes # 0.8 K/mcL (0.6-4.6); Lymphocytes % 9.4 %; Mean Corpuscular HGB Conc 32.6 g/dL (31.6-35.5); Mean Corpuscular Hemoglobin 27.8 pg (28.0-33.3); Mean Corpuscular Volume 85.3 fL (83.0-100.0); Mean Platelet Volume 9.8 fL (9.4-12.4); Monocytes # 0.8 K/mcL (0.0-1.3); Monocytes % 9.6 %; Neutrophils # 5.8 K/mcL (1.6-8.9); Platelet Count 103 K/mcL (140-400); Red Blood Count 3.13 M/mcL (4.19-5.50); Red Cell Distribution Width 16.1 % (11.5-14.5); Segmented Neutrophils % 72.7 %
[2017-06-23 02:54] LABS: % Iron Saturation 15 % (20-55); Alanine Aminotransferase 16 Units/L (7-52); Albumin 2.4 g/dL (3.5-5.7); Albumin/Globulin Ratio 0.9 (1.1-2.2); Alkaline Phosphatase 229 Units/L (34-104); Aspartate Amino Transferase 21 Units/L (13-39); BUN/Creatinine Ratio 12 (6-26); Bilirubin,Total 0.7 mg/dL (0.3-1.0); Blood Urea Nitrogen 7 mg/dL (6-20); Calcium 6.7 mg/dL (8.6-10.3); Carbon Dioxide 23 mEq/L (23-29); Chloride 101 mEq/L (98-107); Ferritin > 1350 ng/ml (20-250); Globulin 2.8 g/dL (2.4-3.5); Glucose 125 mg/dL (70-105); Iron 20 mcg/dL (65-175); Osmolality,Calculated 279 (280-300); Potassium 3.5 mEq/L (3.5-5.1); Sodium 135 mEq/L (136-145); Total Protein 5.2 g/dL (6.4-8.9); Transferrin 96 mg/dL (203-362); eGFR For African Americans > 60 (> 60); eGFR For Non-African Americans > 60 (> 60)
[2017-06-23 03:07] LABS: Folate 7.2 ng/mL (3.0-16.0); Platelet Estimate Normal (Normal); Toxic Granulation Present (Not Present)
[2017-06-23 03:08] LABS: Polychromasia 1+ (Not Present)
[2017-06-23] MEDS: *HR* Morphine Soln 10 MG/5 ML UDC PO PRN ×3 (03:21→19:59)
[2017-06-23] MEDS: *HR* Heparin 5,000 UNIT/ML VIAL SQ SCH ×3 (06:13→22:47)
[2017-06-23] MEDS: Piperacillin/Tazobactam 3.375 GM in 0.9 % Sodium Chloride Mini Bag 100 ML IVPB SCH ×4 (06:13→22:51)
[2017-06-23] MEDS: OXcarbazepine 150 MG TABLET PO SCH ×3 (08:45→22:47)
--- NOTE | 2017-06-23 10:44 | Internal Med Progress Note ---
<Carlos Hercules R - Last Filed: 06/23/17 13:56> Date of Encounter: 06/23/17 - Constitutional Vitals: Temp Pulse Resp BP Pulse Ox 98.9 F 114 17 136/87 97 06/23/17 11:06 06/23/17 11:06 06/23/17 11:06 06/23/17 11:06 06/23/17 11:06 Internal Medicine: Result - Labs CBC & Chem 7: 06/23/17 02:05 06/23/17 02:05 Labs: Short CBC 06/23/17 Range/Units 02:05 WBC 8.0 (4.3-11.1) K/mcL Hgb 8.7 L (12.9-16.9) g/dL Hct 26.7 L (37.5-50.1) % Plt Count 103 L (140-400) K/mcL Neutrophils # 5.8 (1.6-8.9) K/mcL BMP 06/23/17 02:05 Sodium 135 L Potassium 3.5 Chloride 101 Carbon Dioxide 23 BUN 7 Creatinine 0.59 L Glucose 125 H Calcium 6.7 L Liver Function 06/23/17 Range/Units 02:05 Total Bilirubin 0.7 (0.3-1.0) mg/dL AST 21 (13-39) Units/L ALT 16 (7-52) Units/L Alkaline Phosphatase 229 H (34-104) Units/L Albumin 2.4 L (3.5-5.7) g/dL - ABG Interpretation ABG results: PT/INR, D-dimer PT 14.7 Seconds (9.4-12.1) H 06/20/17 21:45 - Impressions Impressions Echocardiogram 06/23/17 15:01 Impressions: Sinus tachycardia, HR 110's. LVEF 60-65%. Mild left ventricular diastolic dysfunction. Normal right ventricular structure and function. No significant valvular dysfunction. No pulmonary hypertension. Left Ventricular Wall Motion: Rest Echo Findings All wall segments showed normal motion. Findings: Study Quality * Technically adequate exam. ECG Findings * Sinus tachycardia. Left Ventricle * LVEF 60-65%. * Mild left ventricular diastolic dysfunction. * Normal LV chamber size and wall motion. Right Ventricle * Normal right ventricular structure and function. Left Atrium * Normal left atrial size. Right Atrium * Normal right atrial size. Mitral Valve * Normal mitral valve structure. * No mitral regurgitation. * No mitral stenosis. Aortic Valve * No aortic regurgitation. * Trileaflet aortic valve. * No aortic stenosis. Tricuspid Valve * Tricuspid valve not well visualized. * Trace tricuspid regurgitation. * Estimated RA pressure is 3 mmHg. * Estimated RVSP is 22 mmHg. * No pulmonary hypertension. Pulmonic Valve * Pulmonic valve is not well visualized. * No pulmonic stenosis. * No pulmonic regurgitation. Pulmonary Artery * Pulmonary artery not well visualized. Aorta * Normally sized aortic root. Pericardium * There is no pericardial effusion present. Interatrial Septum * No evidence of PFO by color Doppler. IVC * The IVC is not dilated. Consult Discharge Plan - Plan Referrals: Lashae Pop MD [Family Provider] - Zeus Bowen MD [Primary Care Provider] - - Attending Attestation I performed an independent interview and examine this patient. I agree with the findings, assessment, and plan of Dr. Yu, internal medicine internal medicine veterinary technician. We discussed the case in detail on rounds. Recent abdominal pain is significantly improved since being changed to Zosyn. Her oncology input is pending. Patient remains afebrile. He does have persistent tachycardia which may be related to suspected colitis (vs malignancy). An echocardiogram was ordered. I discussed the case in detail with the patient and his at the bedside. We will continue to closely monitor, and management of his malignancy per oncology. <Javid Yu - Last Filed: 06/23/17 17:10> Date of Encounter: 06/23/17 Time of Encounter: 10:44 - Assessment and plan (1) Enteritis Current Visit: Yes Status: Acute Assessment and plan: Patient currently on day 2 of Zosyn. Clinically, he is improving. Abdomen soft nontender, no peritoneal signs. Continue treatment with Zosyn. (2) Metastatic melanoma Current Visit: Yes Status: Acute Assessment and plan: Following per hematology and oncology. Is supposed to get chemotherapy today. (3) DVT prophylaxis Current Visit: Yes Status: Acute Assessment and plan: Heparin subcutaneous every 8 hours. (4) Sepsis Current Visit: Yes Status: Acute Assessment and plan: Still tachycardic, but clinically improving. Heart rate has slowed down significantly. Qualifiers: Sepsis type: sepsis due to unspecified organism Qualified Code(s): A41.9 - Sepsis, unspecified organism (5) Hx of seizure disorder Current Visit: Yes Status: Acute Assessment and plan: Stable. On home medications (6) Severe protein-calorie malnutrition Current Visit: Yes Status: Acute Assessment and plan: Nutrition on board. 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 Qualifiers: Site of pathological fracture: pelvis Encounter type: initial encounter Qualified Code(s): M84.550A - Pathological fracture in neoplastic disease, pelvis, initial encounter for fracture - Subjective Interval history: Patient was supposed to initiate chemotherapy today. Has not received it yet. Patient states that his abdomen is feeling better. Awaiting echocardiogram. Was told the patient's heart rate had a be below 110. Heart rate currently 1: 15. On day 2 of Zosyn. - Constitutional Vitals: Temp Pulse Resp BP Pulse Ox 97.7 F 127 16 153/93 97 06/23/17 07:20 06/23/17 07:20 06/23/17 07:20 06/23/17 07:20 06/23/17 08:12 General appearance: Present: A&O X 3, answers questions appropriately - Head Additional comments: Has bags under her eyes. - ENT ENT exam: Present: mucous membranes moist - Neck Neck exam general surgery: Present: supple, trachea midline - Respiratory Respiratory exam: Present: CTAB. Absent: respiratory distress, rhonchi - Cardiovascular Cardiovascular exam: Present: +S1, +S2, tachycardia. Absent: irregular rhythm - GI/Abdominal GI/Abdominal exam: Present: soft, tenderness (Mild tenderness in the lower quadrant to palpation), no peritoneal signs. Absent: guarding, rigid - Extremities Exam Extremities exam: Present: pedal edema (1+ bilaterally) Internal Medicine: Result - Labs CBC & Chem 7: 06/23/17 02:05 06/23/17 02:05 Labs: Short CBC 06/23/17 Range/Units 02:05 WBC 8.0 (4.3-11.1) K/mcL Hgb 8.7 L (12.9-16.9) g/dL Hct 26.7 L (37.5-50.1) % Plt Count 103 L (140-400) K/mcL Neutrophils # 5.8 (1.6-8.9) K/mcL BMP 06/23/17 02:05 Sodium 135 L Potassium 3.5 Chloride 101 Carbon Dioxide 23 BUN 7 Creatinine 0.59 L Glucose 125 H Calcium 6.7 L Liver Function 06/23/17 Range/Units 02:05 Total Bilirubin 0.7 (0.3-1.0) mg/dL AST 21 (13-39) Units/L ALT 16 (7-52) Units/L Alkaline Phosphatase 229 H (34-104) Units/L Albumin 2.4 L (3.5-5.7) g/dL - ABG Interpretation ABG results: PT/INR, D-dimer PT 14.7 Seconds (9.4-12.1) H 06/20/17 21:45
[2017-06-23] MEDS ORDERED: *HR* Metoprolol 5 MG/5 ML VIAL IVP ONE (11:10)
[2017-06-23] MEDS: *HR* FentaNYL (PF) 100 MCG/2 ML VIAL IVP PRN ×3 (13:59→22:46)
[2017-06-24] MEDS: *HR* Morphine Soln 10 MG/5 ML UDC PO PRN ×6 (00:47→21:37)
[2017-06-24] MEDS: *HR* FentaNYL PATCH 50 MCG PATCH TD SCH (02:29)
[2017-06-24] MEDS: D5% in 0.45% NACL 1,000 ML IVC SCH (02:36)
[2017-06-24] MEDS: *HR* Heparin 5,000 UNIT/ML VIAL SQ SCH ×3 (04:52→21:39)
[2017-06-24] MEDS: Piperacillin/Tazobactam 3.375 GM in 0.9 % Sodium Chloride Mini Bag 100 ML IVPB SCH ×3 (04:56→23:07)
[2017-06-24 04:58] LABS: BUN/Creatinine Ratio 13 (6-26); Blood Urea Nitrogen 7 mg/dL (6-20); Calcium 6.5 mg/dL (8.6-10.3); Carbon Dioxide 17 mEq/L (23-29); Chloride 106 mEq/L (98-107); Glucose 122 mg/dL (70-105); Osmolality,Calculated 279 (280-300); Potassium 3.7 mEq/L (3.5-5.1); Sodium 135 mEq/L (136-145); eGFR For African Americans > 60 (> 60); eGFR For Non-African Americans > 60 (> 60)
[2017-06-24 05:52] LABS: Hematocrit 25.6 % (37.5-50.1); Hemoglobin 8.4 g/dL (12.9-16.9); Mean Corpuscular HGB Conc 32.8 g/dL (31.6-35.5); Mean Corpuscular Hemoglobin 28.1 pg (28.0-33.3); Mean Corpuscular Volume 85.6 fL (83.0-100.0); Mean Platelet Volume 10.4 fL (9.4-12.4); Nucleated Red Blood Cells 0.5 /100 WBC (0); Platelet Count 103 K/mcL (140-400); Red Blood Count 2.99 M/mcL (4.19-5.50); Red Cell Distribution Width 15.9 % (11.5-14.5)
[2017-06-24 06:11] LABS: Lymphocytes # 0.4 K/mcL (0.6-4.6); Monocytes # 0.4 K/mcL (0.0-1.3); Neutrophils # 6.5 K/mcL (1.6-8.9); Platelet Estimate Decreased (Normal)
[2017-06-24] MEDS: *HR* FentaNYL (PF) 100 MCG/2 ML VIAL IVP PRN ×5 (08:32→23:07)
[2017-06-24] MEDS: OXcarbazepine 150 MG TABLET PO SCH ×3 (08:42→21:39)
--- NOTE | 2017-06-24 13:32 | Electrocardiograph Report ---
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
--- NOTE | 2017-06-24 14:14 | Internal Med Progress Note ---
<Javid Yu - Last Filed: 06/24/17 14:11> Date of Encounter: 06/24/17 Time of Encounter: 14:11 - Assessment and plan (1) Enteritis Current Visit: Yes Status: Acute Assessment and plan: Patient currently on day 3 of Zosyn. Clinically, patient is abdomen is mildly distended in comparison from her was yesterday. Had some loose stools yesterday but there was no hematochezia or melena. No concerned for C. difficile at this time continue to monitor stools. Abdomen has mild tenderness in the lower quadrants, no peritoneal signs. Continue treatment with Zosyn. (2) Metastatic melanoma Current Visit: Yes Status: Acute Assessment and plan: Following per hematology and oncology. Is supposed to get chemotherapy when it comes in. (3) DVT prophylaxis Current Visit: Yes Status: Acute Assessment and plan: Heparin subcutaneous every 8 hours. (4) Sepsis Current Visit: Yes Status: Acute Assessment and plan: Still tachycardic, but clinically improving. Heart rate the same as yesterday. Clinically, patient appears more volume overloaded than depleted. Qualifiers: Sepsis type: sepsis due to unspecified organism Qualified Code(s): A41.9 - Sepsis, unspecified organism (5) Hx of seizure disorder Current Visit: Yes Status: Acute Assessment and plan: Stable. On home medications (6) Severe protein-calorie malnutrition Current Visit: Yes Status: Acute Assessment and plan: Nutrition on board. 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 Qualifiers: Site of pathological fracture: pelvis Encounter type: initial encounter Qualified Code(s): M84.550A - Pathological fracture in neoplastic disease, pelvis, initial encounter for fracture - Subjective Interval history: Patient did not receive chemotherapy yesterday as planned. He did not receive any chemotherapy today as planned. Still awaiting the medication. Complaining of having some mild abdominal discomfort today. Denies having a bowel movement today, but reported having about 4 yesterday, some soft and loose and some performed. Patient denies any melena or hematochezia. Patient states that he is doing fine otherwise. Echocardiogram that was obtained yesterday was normal. - Constitutional Vitals: Temp Pulse Resp BP Pulse Ox 98.3 F 119 16 130/82 97 06/24/17 11:25 06/24/17 11:25 06/24/17 11:25 06/24/17 11:25 06/24/17 11:25 General appearance: Present: A&O X 3, answers questions appropriately - Head Head exam: Present: atraumatic - ENT ENT exam: Present: mucous membranes moist - Neck Neck exam general surgery: Present: supple, trachea midline - Respiratory Respiratory exam: Present: CTAB - Cardiovascular Cardiovascular exam: Present: tachycardia. Absent: diastolic murmur, JVD, systolic murmur - GI/Abdominal GI/Abdominal exam: Present: distended (Mild, increased from yesterday), soft - Extremities Exam Extremities exam: Present: pedal edema (1+ bilaterally) Internal Medicine: Result - Labs CBC & Chem 7: 06/24/17 05:40 06/24/17 04:23 Labs: Short CBC 06/24/17 Range/Units 05:40 WBC 7.4 (4.3-11.1) K/mcL Hgb 8.4 L (12.9-16.9) g/dL Hct 25.6 L (37.5-50.1) % Plt Count 103 L (140-400) K/mcL Neutrophils # 6.5 (1.6-8.9) K/mcL BMP 06/24/17 04:23 Sodium 135 L Potassium 3.7 Chloride 106 Carbon Dioxide 17 L BUN 7 Creatinine 0.53 L Glucose 122 H Calcium 6.5 L - ABG Interpretation ABG results: PT/INR, D-dimer PT 14.7 Seconds (9.4-12.1) H 06/20/17 21:45 Consult Discharge Plan - Plan Referrals: Lashae Pop MD [Family Provider] - Zeus Bowen MD [Primary Care Provider] - <Carlos Hercules - Last Filed: 06/24/17 16:14> Date of Encounter: 06/24/17 - Constitutional Vitals: Temp Pulse Resp BP Pulse Ox 98.3 F 119 16 130/82 97 06/24/17 11:25 06/24/17 11:25 06/24/17 11:25 06/24/17 11:25 06/24/17 11:25 Internal Medicine: Result - Labs CBC & Chem 7: 06/24/17 05:40 06/24/17 04:23 Labs: Short CBC 06/24/17 Range/Units 05:40 WBC 7.4 (4.3-11.1) K/mcL Hgb 8.4 L (12.9-16.9) g/dL Hct 25.6 L (37.5-50.1) % Plt Count 103 L (140-400) K/mcL Neutrophils # 6.5 (1.6-8.9) K/mcL BMP 06/24/17 04:23 Sodium 135 L Potassium 3.7 Chloride 106 Carbon Dioxide 17 L BUN 7 Creatinine 0.53 L Glucose 122 H Calcium 6.5 L - ABG Interpretation ABG results: PT/INR, D-dimer PT 14.7 Seconds (9.4-12.1) H 06/20/17 21:45 - Attending Attestation I performed an independent interview and exam of this pt. I agree with the fiindings, assessment and plan of Dr. Yu, internal medicine tech intern. My input is reflected in his note. Patient continues on Zosyn, day 3 for enteritis. Still awaiting further oncology recommendations given the unfortunate CT findings of spread of his metastatic melanoma. Patient remains mildly tachycardic. Blood pressure stable. Low-grade fever this morning. We will check blood cultures. Patient unfortunately has multiple metastatic pathologic fractures. Pain is currently managed, but likely will need palliative care consultation.
[2017-06-25] MEDS: D5% in 0.45% NACL 1,000 ML IVC SCH (00:08)
[2017-06-25] MEDS: *HR* Morphine Soln 10 MG/5 ML UDC PO PRN ×5 (01:39→18:57)
[2017-06-25] MEDS: *HR* FentaNYL (PF) 100 MCG/2 ML VIAL IVP PRN ×5 (02:27→23:19)
[2017-06-25 05:05] LABS: Hematocrit 26.8 % (37.5-50.1); Hemoglobin 8.5 g/dL (12.9-16.9); Mean Corpuscular HGB Conc 31.7 g/dL (31.6-35.5); Mean Corpuscular Hemoglobin 27.3 pg (28.0-33.3); Mean Corpuscular Volume 86.2 fL (83.0-100.0); Mean Platelet Volume 10.3 fL (9.4-12.4); Nucleated Red Blood Cells 0.8 /100 WBC (0); Platelet Count 117 K/mcL (140-400); Red Blood Count 3.11 M/mcL (4.19-5.50); Red Cell Distribution Width 16.5 % (11.5-14.5)
[2017-06-25 05:13] LABS: BUN/Creatinine Ratio 13 (6-26); Blood Urea Nitrogen 8 mg/dL (6-20); Calcium 6.9 mg/dL (8.6-10.3); Carbon Dioxide 24 mEq/L (23-29); Chloride 101 mEq/L (98-107); Glucose 127 mg/dL (70-105); Osmolality,Calculated 276 (280-300); Potassium 3.4 mEq/L (3.5-5.1); Sodium 133 mEq/L (136-145); eGFR For African Americans > 60 (> 60); eGFR For Non-African Americans > 60 (> 60)
[2017-06-25 05:28] LABS: Lymphocytes # 2.2 K/mcL (0.6-4.6); Monocytes # 0.4 K/mcL (0.0-1.3); Neutrophils # 6.6 K/mcL (1.6-8.9)
[2017-06-25 05:29] LABS: Platelet Estimate Decreased (Normal)
[2017-06-25] MEDS: *HR* Heparin 5,000 UNIT/ML VIAL SQ SCH ×3 (05:45→23:24)
[2017-06-25] MEDS: Piperacillin/Tazobactam 3.375 GM in 0.9 % Sodium Chloride Mini Bag 100 ML IVPB SCH ×3 (05:45→23:25)
[2017-06-25] MEDS: OXcarbazepine 150 MG TABLET PO SCH ×3 (07:46→20:30)
--- NOTE | 2017-06-25 12:17 | Oncology Inp Progress Note ---
Date of Encounter: 06/25/17 Time of Encounter: 11:15 (1) Enteritis Current Visit: Yes Status: Acute Assessment and plan: Clinically, he is recovering. He is afebrile. I think it is reasonable to transition him from Zosyn to perhaps ciprofloxacin and metronidazole the next 24 hours to enable him to be discharged home if felt stable by the primary team. (2) Metastatic melanoma Current Visit: Yes Status: Acute Assessment and plan: Patient has BRAF mutated melanoma. He recently progressed on the nivolumab. He is due to start on the dabrafenib and mekinist. His thinks she will be receiving this on Monday. We did discuss the side effects of this therapy. This will also be reviewed in more detail by his primary oncologist, Dr. Reynaga upon discharge. His pain is currently controlled. From our perspective, he may be discharged once deemed stable by the primary team Oncology: Subj Interval history: Mr. Hale is feeling better today. He is passing flatness but states he has not moved his bowels. He liked a dose of MiraLAX to help with this. His abdomen still feels a little bit distended but is more comfortable. No fever, chills or symptoms of infection. He strongly desires to return home in the next 24 hours. - Constitutional Vitals: Vital Signs Temp Pulse Resp BP Pulse Ox 06/25/17 11:47 98.2 F 133 19 123/80 91 06/25/17 07:24 98.3 F 129 18 105/65 90 06/25/17 02:58 98.8 F 121 18 135/85 91 06/25/17 00:05 99.4 F 123 16 125/76 92 06/24/17 18:56 98.2 F 138 18 111/64 94 06/24/17 17:23 98.1 F 16 16 140/82 96 Intake and Output 06/25/17 06/25/17 06/25/17 00:59 08:59 16:59 Intake Total 100 / 100 900 / 900 Output Total 650 / 650 250 / 250 300 / 300 Balance -550 / -550 650 / 650 -300 / -300 Intake: IV Fluids 100 / 100 100 / 100 Zosyn 3.375 GM In 0.9 % Sodium 100 / 100 100 / 100 Chloride (Mini-Bag +) 100 ML @ 25 mls/hr IVPB Q8H [facility] Rx#: [id number] Oral 800 / 800 Output: Urine 650 / 650 250 / 250 300 / 300 Other: Weight 97.5 kg Patient Weight 06/26/17 00:59 Weight 97.5 kg General appearance: average body habitus, cooperative, no acute distress - Head Head exam: Present: atraumatic, normal inspection, normocephalic - Eye Eye exam: Present: normal appearance, conjuntiva pink, sclera anicteric - ENT ENT exam: Present: mucous membranes moist, normal external ear exam, normal oropharynx - Neck Neck exam: Present: full ROM, normal inspection - Respiratory Respiratory exam: Present: CTAB - Cardiovascular Cardiovascular exam: Present: RRR - GI/Abdominal GI/Abdominal exam: Present: distended, normal bowel sounds, soft - Extremities Exam Extremities exam: Present: normal inspection, pedal edema - Neurological Exam Neurological exam: Present: alert, CN II-XII intact, oriented X3, no focal deficits - Skin Skin exam: Present: dry Oncology: Obj Data - Labs CBC & Chem 7: 06/25/17 04:19 06/25/17 04:19 Labs: Laboratory Results - last 24 hr 06/25/17 06/25/17 04:19 04:19 WBC 9.2 RBC 3.11 L Hgb 8.5 L Hct 26.8 L MCV 86.2 MCH 27.3 L MCHC 31.7 RDW 16.5 H Plt Count 117 L MPV 10.3 Seg Neutrophils % 70.0 Band Neutrophils % 2.0 Lymphocytes % 24.0 Monocytes % 4.0 Neutrophils # 6.6 Lymphocytes # 2.2 Monocytes # 0.4 Nucleated RBCs/100 WBC 0.8 H Platelet Estimate Decreased L Sodium 133 L Potassium 3.4 L Chloride 101 Carbon Dioxide 24 BUN 8 Creatinine 0.61 L Est GFR ( Amer) > 60 Est GFR (Non-Af Amer) > 60 BUN/Creatinine Ratio 13 Glucose 127 H Calculated Osmolality 276 L Calcium 6.9 L - ABG Interpretation ABG results: PT/INR, D-dimer PT 14.7 Seconds (9.4-12.1) H 06/20/17 21:45 Consult Discharge Plan - Plan Referrals: Lashae Pop MD [Family Provider] - Zeus Bowen MD [Primary Care Provider] -
--- NOTE | 2017-06-25 15:29 | Internal Med Progress Note ---
Date of Encounter: 06/25/17 Time of Encounter: 15:25 - Time Spent With Patient - Assessment and plan (1) Enteritis Current Visit: Yes Status: Acute Assessment and plan: Patient currently on day 3 of Zosyn. Will consider swicth to oral 06/25/2017. Clinically, patient is abdomen is mildly distended in comparison from her was yesterday. Has had some loose stools but there was no hematochezia or melena. No concern for C. difficile at this time continue to monitor stools. Abdomen without tenderness in the lower quadrants, no peritoneal signs. Continue treatment with Zosyn for now will consider switch to Flagyl 06/25/2017 for few more days. (2) Metastatic melanoma Current Visit: Yes Status: Acute Assessment and plan: Following per hematology and oncology. Pt seen by oncology and chemo meds adjusted. (3) DVT prophylaxis Current Visit: Yes Status: Acute Assessment and plan: Heparin subcutaneous every 8 hours. (4) Sepsis Current Visit: Yes Status: Acute Assessment and plan: Still tachycardic, but clinically improving. Heart rate the same as yesterday. Clinically, patient appears more volume overloaded than depleted. Qualifiers: Sepsis type: sepsis due to unspecified organism Qualified Code(s): A41.9 - Sepsis, unspecified organism (5) Hx of seizure disorder Current Visit: Yes Status: Acute Assessment and plan: Stable. On home medications. (6) Severe protein-calorie malnutrition Current Visit: Yes Status: Acute Assessment and plan: Nutrition on board. 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 Qualifiers: Site of pathological fracture: pelvis Encounter type: initial encounter Qualified Code(s): M84.550A - Pathological fracture in neoplastic disease, pelvis, initial encounter for fracture - Subjective Interval history: Patient did not receive chemotherapy yesterday as planned. He did not receive any chemotherapy today as planned. Still awaiting the medication. Complaining of having some mild abdominal discomfort today. Denies having a bowel movement today, but reported having about 4 yesterday, some soft and loose and some performed. Patient denies any melena or hematochezia. Patient states that he is doing fine otherwise. Echocardiogram that was obtained yesterday was normal. less than 15 minutes - Subjective Interval history: Pt denies abdominal pain but does complain of back pain. Also has bilateral LE edema. at bedside states this is new since his admission. Pt denies fever, chills, N/V or diarrhea. - Constitutional Vitals: Temp Pulse Resp BP Pulse Ox 98.2 F 133 19 123/80 91 06/25/17 11:47 06/25/17 11:47 06/25/17 11:47 06/25/17 11:47 06/25/17 11:47 General appearance: Present: A&O X 3, answers questions appropriately - Head Head exam: Present: atraumatic, normocephalic - Eye Eye exam: Present: PERRL, conjuntiva pink, sclera anicteric Pupils: Present: PERRL - Neck Neck exam general surgery: Present: supple, trachea midline. Absent: lymphadenopathy - Respiratory Respiratory exam: Present: CTAB. Absent: accessory muscle use, rales, rhonchi, wheezes - Cardiovascular Cardiovascular exam: Present: RRR, +S1, +S2. Absent: diastolic murmur, gallop, rubs, systolic murmur - GI/Abdominal GI/Abdominal exam: Present: normal bowel sounds, soft, no peritoneal signs. Absent: distended, tenderness - Extremities Exam Extremities exam: Present: warm, radial pulses palpable and symmetrical. Absent : calf tenderness, cyanotic, pedal edema - Neurological Exam Neurological exam: Present: CN II-XII intact, oriented X3, no focal deficits. Absent: pronater drift, facial droop, speech deficit - Psychiatric Psychiatric exam: Present: normal affect, normal mood (but appears uncomfortable due to back pain) - Skin Skin exam: Present: dry, intact Internal Medicine: Result - Labs CBC & Chem 7: 06/25/17 04:19 06/25/17 04:19 Labs: Short CBC 06/25/17 Range/Units 04:19 WBC 9.2 (4.3-11.1) K/mcL Hgb 8.5 L (12.9-16.9) g/dL Hct 26.8 L (37.5-50.1) % Plt Count 117 L (140-400) K/mcL Neutrophils # 6.6 (1.6-8.9) K/mcL BMP 06/25/17 04:19 Sodium 133 L Potassium 3.4 L Chloride 101 Carbon Dioxide 24 BUN 8 Creatinine 0.61 L Glucose 127 H Calcium 6.9 L - ABG Interpretation ABG results: PT/INR, D-dimer PT 14.7 Seconds (9.4-12.1) H 06/20/17 21:45 Consult Discharge Plan - Plan Referrals: Lashae Pop MD [Family Provider] - Zeus Bowen MD [Primary Care Provider] -
[2017-06-26] MEDS: *HR* Morphine Soln 10 MG/5 ML UDC PO PRN ×3 (00:13→10:25)
[2017-06-26] MEDS: *HR* FentaNYL (PF) 100 MCG/2 ML VIAL IVP PRN ×3 (03:38→12:27)
[2017-06-26] MEDS: Piperacillin/Tazobactam 3.375 GM in 0.9 % Sodium Chloride Mini Bag 100 ML IVPB SCH (06:46)
[2017-06-26] MEDS: *HR* Heparin 5,000 UNIT/ML VIAL SQ SCH (06:47)
[2017-06-26] MEDS: OXcarbazepine 150 MG TABLET PO SCH (09:03)
[2017-06-26 10:52] VITALS: BP 120/77
--- NOTE | 2017-06-26 11:42 | Oncology Inp Progress Note ---
Date of Encounter: 06/26/17 Time of Encounter: 11:42 (1) Metastatic melanoma Status: Inactive Assessment and plan: Metastatic melanoma, stage IV mets to bone, lung and liver lesions, rt axillary adenopathy Started C1 nivolumab 05/09/17, C2 05/23/2017, C3 06/07/2017. He also received palliative RT from 05/11/2017 - 05/24/2017 to Right shoulder ( including T2-T4) and L4-S3, 3000 cGy to each site. He also receives Denosumab for bone health and prevention of SRE Q4 weeks, last received 06/07/17. 06/26/2017-He is BRAF positive and a candidate for dabrafenib and trametinib therapy. He will likely plan to start therapy as soon as medication is available. Discussed with patient and today that they should expect a call from the pharmacy company to arrange for medication delivery within the next 1- 3 days. Copay amount will be discussed at this call, if they have any concerns regarding copay amount they were instructed to call the cancer center to discuss with team/financial counselor. Patient/patients have previously completed chemo education for dabrafenib and trametinib. They do not have any further questions regarding therapy at this time. LVEF must be monitored due to risk for cardiomyopathy while taking these medications. Baseline echo shows LVEF at 60-65%. He will then plan to have repeat echos in 1 month and every 2-3 months thereafter while on medications. Continue pain control regimen with Fentanyl TD, fentanyl IVP and morphine 10 mg PO PRN. May need to titrate fentanyl patch dose to allow proper pain control without IV medication in preparation for discharge home. Reports adequate pain control at this time, he is able to ambulate to bathroom. (2) Enteritis Status: Acute Assessment and plan: CT of the abdomen and pelvis reveals marked mural thickening involving the terminal ileum, compatible with enteritis. Abdominal pain and distention has improved. He is planned to transition to oral ATB therapy. Following days of constipation he had a BM over weekend. Now experiencing some loose stool likely from his laxative use. Please continue miralax at home PRN, hold for loose stool. (3) Pathological fracture in neoplastic disease Status: Acute Assessment and plan: Continue pain control regimen with Fentanyl TD, fentanyl IVP and morphine 10 mg PO PRN. Pain controlled to allow for ambulation in room to bathroom. Plan to continue fentanyl patch at discharge, he has oxycodone at home for breakthrough. Instructed to call cancer center this week if adjustments need to be made in pain control. He has a close follow up with Dr. Reynaga arranged in one week. He was instructed to call with any further questions or concerns. Qualifiers: Site of pathological fracture: pelvis Encounter type: initial encounter Qualified Code(s): M84.550A - Pathological fracture in neoplastic disease, pelvis, initial encounter for fracture Oncology: Subj Interval history: Mr. Hale is resting in bed, his is at bedside. He is hopeful for discharge home today. He reports that his pain is controlled He denies abdominal pain, SOB , chest pain, calf pain, nausea, or vomiting. His constipation has resolved and he is now experiencing some loose stool. - Constitutional Vitals: Vital Signs Temp Pulse Resp BP Pulse Ox 06/26/17 10:49 99 F 118 18 120/77 94 06/26/17 08:05 97.9 F 134 14 115/75 92 06/26/17 03:54 98.9 F 133 16 108/60 92 06/25/17 23:15 100 F H 131 20 122/80 92 06/25/17 18:41 99.1 F 139 16 125/81 93 06/25/17 16:26 98.5 F 132 20 115/75 95 06/25/17 11:47 98.2 F 133 19 123/80 91 Intake and Output 06/25/17 06/26/17 06/26/17 23:59 07:59 15:59 Intake Total 100 / 100 100 / 100 Output Total 0 / 0 0 / 0 250 / 250 Balance 100 / 100 100 / 100 -250 / -250 Intake: IV Fluids 100 / 100 100 / 100 Zosyn 3.375 GM In 0.9 % Sodium 100 / 100 100 / 100 Chloride (Mini-Bag +) 100 ML @ 25 mls/hr IVPB Q8H [facility] Rx#: [id number] Output: Urine 0 / 0 0 / 0 250 / 250 Other: Weight 98 kg Patient Weight 06/26/17 23:59 Weight 98 kg General appearance: cooperative, no acute distress, no febrile - Head Head exam: Present: atraumatic - ENT ENT exam: Present: mucous membranes moist - Respiratory Respiratory exam: Present: CTAB. Absent: respiratory distress - Cardiovascular Cardiovascular exam: Present: RRR, +S1, +S2, tachycardia - GI/Abdominal GI/Abdominal exam: Present: normal bowel sounds, soft. Absent: guarding, rebound Additional comments: mild tenderness with deep palpation - Extremities Exam Extremities exam: Present: pedal edema. Absent: calf tenderness Additional comments: 1-2+ BLE edema, pitting - Neurological Exam Neurological exam: Present: alert, oriented X3, no focal deficits, strengths equal and symetr throughout - Psychiatric Psychiatric exam: Present: flat affect - Skin Skin exam: Present: dry, intact, pallor, warm Oncology: Obj Data - Labs CBC & Chem 7: 06/25/17 04:19 06/25/17 04:19 - ABG Interpretation ABG results: PT/INR, D-dimer PT 14.7 Seconds (9.4-12.1) H 06/20/17 21:45 Consult Discharge Plan - Plan Instructions: Ciprofloxacin (By mouth), Metoprolol (By mouth), Laxative, Stimulant (By mouth), Metronidazole (By mouth), Polyethylene Glycol 3350 (By mouth), Acute Abdominal Pain (DC) Additional Instructions: F/up with PCP in 1-2 weeks F/up with Oncology as scheduled Referrals: Zeus Bowen MD [Primary Care Provider] - 07/03/17 8:00 am Prescriptions: Ciprofloxacin HCl [Cipro] 500 mg PO BID #10 tablet Metoprolol [Lopressor] 25 mg PO BID #60 tablet metroNIDAZOLE [Flagyl] 500 mg PO TID #15 tablet Polyethylene Glycol 3350 [MiraLAX] 17 gm PO DAILY PRN #30 powd.pack PRN Reason: Constipation
[2017-06-26] MEDS ORDERED: Potassium Chloride Elixir 20 MEQ/15 ML UDC PO ONE (13:01)
--- NOTE | 2017-06-26 13:47 | Discharge Summary ---
- NOTES TO OUTPATIENT PROVIDER Notes to Outpatient Provider: On antibiotics for enteritis; to start new chemotherapy for malignant melanoma; always tachycardic; Orders not resulted at time of discharge: Pending orders 06/24/17 18:11 Culture,Blood [BC] Stat Date of Encounter: 06/26/17 Time of Encounter: 13:44 - Discharge Diagnosis (1) Enteritis Priority: Primary Status: Acute (2) Metastatic melanoma Priority: Secondary Status: Inactive (3) Pathological fracture in neoplastic disease Priority: Primary Status: Acute Qualifiers: Site of pathological fracture: pelvis Encounter type: initial encounter Qualified Code(s): M84.550A - Pathological fracture in neoplastic disease, pelvis, initial encounter for fracture (4) Sepsis Priority: Primary Status: Acute Qualifiers: Sepsis type: sepsis due to unspecified organism Qualified Code(s): A41.9 - Sepsis, unspecified organism (5) Severe protein-calorie malnutrition Priority: Secondary Status: Chronic (6) Sinus tachycardia Priority: Primary Status: Chronic (7) Hx of seizure disorder Priority: Secondary Status: Chronic Hospital course: Mr. Hale is a 47 year old male with the above medical problems including metastatic melanoma, who was initially admitted with abdominal and low back pain. CT abdomen/pelvis showed changes suggestive of enteritis versus metastatic extension to the small bowel, Christen progression of metastatic disease throughout the chest, abdomen and pelvis, pathologic fractures involving the right sacrum and pubis. Patient was noted to be septic with tachycardia and bandemia, started on supportive medical management with IV hydration, IV antibiotics, ciprofloxacin and Flagyl and then with Zosyn. Oncology was consulted, patient will be started on new chemotherapy regimen with dabrafenib and trametinib. These medications are noted to be associated with the risk of cardiomyopathy and patient remained tachycardic throughout his hospitalization. Transthoracic echocardiogram was done, which showed sinus tachycardia, preserved ejection fraction, mild LV diastolic dysfunction. Patient is currently hemodynamically stable except sinus tachycardia, tolerates oral diet, abdominal and back pain are well controlled. Case was discussed with oncology, he was deemed stable for discharge with outpatient follow-up. Discharge discussed with: patient, family - Time Spent with Patient Total time spent providing and/or coordinating discharge services: Greater than 30 minutes (45 min) - Discharge Medications Prescriptions: Ciprofloxacin HCl [Cipro] 500 mg PO BID #10 tablet Metoprolol [Lopressor] 25 mg PO BID #60 tablet metroNIDAZOLE [Flagyl] 500 mg PO TID #15 tablet Polyethylene Glycol 3350 [MiraLAX] 17 gm PO DAILY PRN #30 powd.pack PRN Reason: Constipation Home Medications: OXcarbazepine [Trileptal] 300 mg PO TID 04/21/17 [History] Ondansetron [Zofran] 8 mg PO Q8HR PRN #60 tablet 05/15/17 [Rx] FentaNYL PATCH [Duragesic] 50 mcg TD Q72H 3 Days #1 patch.td72 06/07/17 [Rx] Ciprofloxacin HCl [Cipro] 500 mg PO BID #10 tablet 06/26/17 [Rx] Metoprolol [Lopressor] 25 mg PO BID #60 tablet 06/26/17 [Rx] Polyethylene Glycol 3350 [MiraLAX] 17 gm PO DAILY PRN #30 powd.pack 06/26/17 [Rx ] metroNIDAZOLE [Flagyl] 500 mg PO TID #15 tablet 06/26/17 [Rx] Oxycodone HCl [Oxaydo] 5 - 10 mg PO Q6H PRN 06/28/17 [History] Allergies/Adverse Reactions: 3 Allergy/AdvReac Type Severity Reaction Status Date / Time No Known Allergies Allergy Verified 06/28/17 06:56 Date of admission: 06/21/17 16:22 Primary care physician: Zeus Park Consults: 06/22/17 13:12 Consult to Physical Therapy [CONS] Routine Comment: Evaluate, develop and implement POC Reason for Consult: hip fracture, assess functional status Does patient have active BEDREST order?: No Is patient medically & hemodynamically stable?: Yes Discharging clinician: Leora Cheney Anticipated date of discharge: 06/26/17 - Constitutional Vitals: Temp Pulse Resp BP Pulse Ox 99 F 118 18 120/77 94 06/26/17 10:49 06/26/17 10:49 06/26/17 10:49 06/26/17 10:49 06/26/17 10:49 General appearance: Present: A&O X 3, answers questions appropriately - Cardiovascular Cardiovascular exam: Present: RRR, +S1, +S2, tachycardia. Absent: diastolic murmur, gallop, rubs, systolic murmur - Patient Status Disposition: Home, Self-Care Condition: Fair Functional capacity at discharge: independent ambulation Overall status at discharge: patient is progressing back to baseline - Discharge Instructions Instructions: Ciprofloxacin (By mouth), Metoprolol (By mouth), Laxative, Stimulant (By mouth), Metronidazole (By mouth), Polyethylene Glycol 3350 (By mouth), Acute Abdominal Pain (DC) Follow Up With: Zeus Bowen MD [Primary Care Provider] - 07/03/17 8:00 am Additional Instructions: F/up with PCP in 1-2 weeks F/up with Oncology as scheduled - Diet and Activity Activity: resume usual activities as tolerated Diet: advance to your usual diet
== END 2017-06-26 14:44 | disposition home or self-care (01) | DRG 871 ==
LOC: EMEROO 21:19 → 2SOUTHHOLD 21:19 → EMEROO 23:49 → 2SOUTHHOLD 23:49 → UNDODISOB 06-21 02:03 → SUATTDRO 06-21 16:22 → 3BNU 06-23 18:13
PROVIDERS: ADMIT Family Medicine; ATTEND Internal Medicine

== ENCOUNTER 2017-06-28 03:03 | Observation (INO) ==
--- NOTE | 2017-06-28 03:28 | Emergency Department Note ---
Disposition Clinical Impression: Sinus tachycardia, Metastatic melanoma, HCAP (healthcare-associated pneumonia) Disposition: Admitted As Inpatient Condition: Fair Referrals: Lashae Pop MD [Family Provider] - NONE,PCP [Primary Care Provider] - Forms: ED Satisfaction Letter Time of Disposition: 05:54 SOB HPI - General Chief Complaint: ED Shortness of Breath/Dyspnea Stated Complaint: SOB Time Seen by Provider: 06/28/17 03:14 Source: patient, family Mode of arrival: ambulatory Limitations: no limitations Nursing Notes Reviewed: Yes Vital Signs Reviewed: Yes - History of Present Illness 47-year-old male history of metastatic melanoma presents with shortness of breath. States he is been experiencing increase work of breathing over the past 48 hours, worse this evening. He was hospitalized for several days and discharge 2 days ago when symptoms manifested. States he was in the bathroom having a bowel movement when he stood up any phone his heart racing he felt short of breath he took 30 to 40 seconds or to return to normal. He denied any chest pain. Denies any nausea or vomiting. Denies diaphoresis. He has not noticed any fevers, chills, cough. He was recently hospitalized for enteritis where he was discharge home with Cipro and Flagyl 2 days ago. He is currently seeing the oncologist Dr. Reynaga who will be starting him on 2 chemo therapy drugs as it appears his cancer is spread to his liver lungs and lymph nodes. Prior to his recent hospitalization he was getting infusions every 2 weeks, last infusion 4 weeks ago. He has received a total 4. On exam patient is very pale. He denies any active bleeding, hemoptysis, hematemesis, bloody stool or blacked tarry stool. States is belly is been getting slightly larger. He has noticed increased leg swelling but no tenderness. During his hospitalization he was also tachycardic 140 requiring metoprolol to bring it down. He is not hypoxic on exam. He is afebrile. Will get a chest x-ray basic labs, suspect some of his symptoms due to his melanoma anemia and likely drug reaction to his chemotherapy causing the anemia. Pt Subjective Complaint: shortness of breath - Related Data Home Medications Medication Instructions Recorded Confirmed OXcarbazepine [Trileptal] 300 mg PO TID 04/21/17 06/21/17 Previous Rx's Medication Instructions Recorded Ondansetron [Zofran] 8 mg PO Q8HR PRN #60 tablet 05/15/17 FentaNYL PATCH [Duragesic] 50 mcg TD Q72H 3 Days #1 patch.td72 06/07/17 Ciprofloxacin HCl [Cipro] 500 mg PO BID #10 tablet 06/26/17 Metoprolol [Lopressor] 25 mg PO BID #60 tablet 06/26/17 Polyethylene Glycol 3350 [MiraLAX] 17 gm PO DAILY PRN #30 powd.pack 06/26/17 Sennosides/Docusate Sodium [Senna 2 each PO BID PRN #60 tablet 06/26/17 Plus] metroNIDAZOLE [Flagyl] 500 mg PO TID #15 tablet 06/26/17 Allergies Allergy/AdvReac Type Severity Reaction Status Date / Time No Known Allergies Allergy Verified 06/20/17 21:21 All systems ED: reviewed and negative except as stated. Review of Systems: As Per HPI Constitutional: Denies: fever, chills ENT ED: Denies: congestion Cardiovascular: Denies: chest pain Respiratory: Reports: dyspnea. Denies: cough, wheezes, hemoptysis Gastrointestinal: Reports: abdominal pain. Denies: nausea, vomiting Genitourinary: Denies: urgency, dysuria Musculoskeletal: Denies: back pain, neck pain Integumentary: Denies: rash, abrasion, lesions Neurological: Denies: headache Past Medical History - Past Medical History Attestation: Yes The following information was validated with the patient. Source: patient Medical history: Reports: asthma, cancer, kidney stones, seizures Surgical history: Reports: no surgical history Psychiatric history: Reports: no psych history - Social History Smoking Status: Never smoker Smokeless Tobacco Status: No Alcohol use: Reports: none Drug use: Reports: none Physical Exam - General Limitations: no limitations General appearance: alert, other (weakness, ill) - Head Head exam: atraumatic, normocephalic, normal inspection - Eye Eye exam: Present: normal appearance, PERRL, EOMI, other (pale conjunctiva) - ENT ENT exam: normal exam, normal oropharynx, mucous membranes dry, other - Expanded ENT Exam Mouth exam: Present: other (pale lips) Teeth exam: Present: normal inspection - Neck Neck exam: Present: normal inspection, full ROM, trachea midline - Chest Chest inspection: Present: normal inspection, symmetric chest wall rise. Absent : tenderness - Respiratory Respiratory exam: Present: normal lung sounds bilaterally, wheezes (bilateral, scattered). Absent: respiratory distress - Expanded Respiratory Exam Location: wheezes: Right, Left - Cardiovascular Cardiovascular exam: Present: normal rhythm, tachycardia, normal heart sounds - Expanded Cardiovascular Exam Peripheral pulses: 1+: dorsalis pedis (R), dorsalis pedis (L), 2+: radial (R), radial (L) - Abdominal Exam Abdominal exam: Present: soft, tenderness (diffuse). Absent: Non-Tender, distention, guarding, rebound, rigidity, ascites - Extremities Exam Extremities exam: Present: pedal edema (+2 bilateral pitting). Absent: calf tenderness - Neurological Exam Neurological exam: Present: alert, oriented X3 - Psychiatric Psychiatric exam: Present: anxious, flat affect - Skin Skin exam: Present: warm, dry, intact, other (pallor) Course Course Narrative: This is an unfortunate 47-year-old male with recent diagnosis of metastatic melanoma with metastasis to the abdomen, liver, lungs. His presenting with increase worker breathing. Chest x-ray performed showed numerous metastatic lesions in the lung. Patients afebrile with good oxygen saturation on room air. Lungs auscultation bilateral scattered wheezing with diminished breath sounds on the basis. His abdomen is soft and mildly distended without rigidity. No peritoneal signs. Overall patient looks very ill and anemic and pale. He has significant pitting edema to the bilateral lower extremities likely due to venous obstruction from his abdominal metastatic lesions. Basic labs ordered. He is not septic appearing. Review of his echocardiogram showed EF a 55% with mild diastolic heart failure. - Reevaluation(s) Reevaluation #1: Surprisingly his hemoglobin is 10.5. 3 days ago on his discharges hemoglobin was 8.5. reports he is much more paler than usual. Lips are pale, conjunctiva pale very little color distal to his lower extremity. Obtained doppler pulses with ultrasound in bilateral dorsalis pedis and posterior tibialis. His white blood cell count is 8 appears near baseline. Platelets are slightly elevated 137. Concern this could be due to hemoconcentration. Given his symptoms of dyspnea will perform a CT angiogram of the chest to rule out pneumonia that may be superimposed behind the metastatic lesion as well as pulmonary embolism. Patient will require admission and would likely benefit with palliative care consultation. He does not meet sepsis criteria as he meets tachycardia without fever, luekocytosis or tachypnea. Time: 04:53 Reevaluation #2: Review of his CT scan shows extensive metastasis. There is also a new right apical infiltrate. No evidence of pulmonary embolism. Given his symptoms of dyspnea recent hospitalization will treat him for healthcare associated pneumonia. Patient is currently on Flagyl and Cipro will change to Vanc, Zosyn , Levaquin for empiric antibiotic coverage. His lactate is 2.2. He is not hypotensive. He does not require aggressive fluid resuscitation at this time. Blood cultures have been ordered. Patient will be admitted. Impression is HCAP , metastatic melanoma. Repeat of his hemoglobin is 9.0, he does not require emergent transfusion at this time. Time: 05:50 - Consultations Consultation #1: Spoke with on-call hospitalist andie Apple to admit for HCAP, metastatic melanoma. No further orders at this time Time: 05:53 Vital Signs Temperature 97.4 F L 06/28/17 03:05 Pulse Rate 132 06/28/17 03:05 Respiratory Rate 20 06/28/17 03:05 Blood Pressure 108/80 06/28/17 03:05 O2 Sat by Pulse Oximetry 96 06/28/17 03:05 Temperature 97.4 F L 06/28/17 03:05 Pulse Rate 115 06/28/17 04:52 Respiratory Rate 16 06/28/17 04:52 Blood Pressure 107/69 06/28/17 04:52 O2 Sat by Pulse Oximetry 100 06/28/17 04:52 Oxygen Delivery Oxygen Delivery Room Air Shortness of Breath/Dyspnea - MDM Narrative Medical decision making narrative: Patient was discussed with my attending physician who agrees with ED management and final disposition. They independently evaluated the patient. Please refer to their attestation to this encounter for additional information. This note was generated by [employer] voice recognition software and as a result grammatical or spelling errors may occur using this program. - Medical Records Medical records reviewed: Yes I reviewed the patient's medical records. - Lab Data Lab results reviewed: Yes I reviewed the patient's lab results. Result diagrams: 06/28/17 04:20 06/28/17 03:28 Lab Results 06/28/17 06/28/17 06/28/17 Range/Units 03:28 03:28 04:20 WBC 8.1 (4.3-11.1) K/mcL RBC 3.78 L (4.19-5.50) M/mcL Hgb 10.5 L D 9.0 L D (12.9-16.9) g/dL Hct 32.5 L 27.9 L (37.5-50.1) % MCV 86.0 (83.0-100.0) fL MCH 27.8 L (28.0-33.3) pg MCHC 32.3 (31.6-35.5) g/dL RDW 17.1 H (11.5-14.5) % Plt Count 134 L (140-400) K/mcL MPV 10.5 (9.4-12.4) fL Immature Gran % 9.3 H (0-4) % Seg Neutrophils % 75.4 % Lymphocytes % 7.7 % Monocytes % 6.8 % Eosinophils % 0.4 % Basophils % 0.4 % Neutrophils # 6.1 (1.6-8.9) K/mcL Lymphocytes # 0.6 (0.6-4.6) K/mcL Monocytes # 0.6 (0.0-1.3) K/mcL Eosinophils # 0.0 (0.0-0.6) K/mcL Basophils # 0.0 (0.0-0.2) K/mcL Nucleated RBCs/100 WBC 1.0 H (0) /100 WBC Platelet Estimate Normal (Normal) Anisocytosis 1+ A (Not Present) Sodium 134 L (136-145) mEq/L Potassium 3.2 L (3.5-5.1) mEq/L Chloride 99 (98-107) mEq/L Carbon Dioxide 23 (23-29) mEq/L BUN 13 (6-20) mg/dL Creatinine 0.66 L (0.70-1.30) mg/dL Est GFR ( Amer) > 60 (> 60) Est GFR (Non-Af Amer) > 60 (> 60) BUN/Creatinine Ratio 20 (6-26) Glucose 140 H (70-105) mg/dL Calculated Osmolality 280 (280-300) Lactic Acid (0.5-2.2) mmol/L Calcium 7.3 L (8.6-10.3) mg/dL Total Bilirubin 0.5 (0.3-1.0) mg/dL Direct Bilirubin 0.3 H (0.0-0.2) mg/dL Indirect Bilirubin 0.2 (0.0-1.2) mg/dL AST 20 (13-39) Units/L ALT 12 (7-52) Units/L Alkaline Phosphatase 239 H (34-104) Units/L Serum Total Protein 5.9 L (6.4-8.9) g/dL Albumin 2.8 L (3.5-5.7) g/dL Globulin 3.1 (2.4-3.5) g/dL Albumin/Globulin Ratio 0.9 L (1.1-2.2) Blood Type Antibody Screen 06/28/17 06/28/17 Range/Units 04:44 04:44 WBC (4.3-11.1) K/mcL RBC (4.19-5.50) M/mcL Hgb (12.9-16.9) g/dL Hct (37.5-50.1) % MCV (83.0-100.0) fL MCH (28.0-33.3) pg MCHC (31.6-35.5) g/dL RDW (11.5-14.5) % Plt Count (140-400) K/mcL MPV (9.4-12.4) fL Immature Gran % (0-4) % Seg Neutrophils % % Lymphocytes % % Monocytes % % Eosinophils % % Basophils % % Neutrophils # (1.6-8.9) K/mcL Lymphocytes # (0.6-4.6) K/mcL Monocytes # (0.0-1.3) K/mcL Eosinophils # (0.0-0.6) K/mcL Basophils # (0.0-0.2) K/mcL Nucleated RBCs/100 WBC (0) /100 WBC Platelet Estimate (Normal) Anisocytosis (Not Present) Sodium (136-145) mEq/L Potassium (3.5-5.1) mEq/L Chloride (98-107) mEq/L Carbon Dioxide (23-29) mEq/L BUN (6-20) mg/dL Creatinine (0.70-1.30) mg/dL Est GFR ( Amer) (> 60) Est GFR (Non-Af Amer) (> 60) BUN/Creatinine Ratio (6-26) Glucose (70-105) mg/dL Calculated Osmolality (280-300) Lactic Acid 2.2 (0.5-2.2) mmol/L Calcium (8.6-10.3) mg/dL Total Bilirubin (0.3-1.0) mg/dL Direct Bilirubin (0.0-0.2) mg/dL Indirect Bilirubin (0.0-1.2) mg/dL AST (13-39) Units/L ALT (7-52) Units/L Alkaline Phosphatase (34-104) Units/L Serum Total Protein (6.4-8.9) g/dL Albumin (3.5-5.7) g/dL Globulin (2.4-3.5) g/dL Albumin/Globulin Ratio (1.1-2.2) Blood Type A POSITIVE Antibody Screen NEGATIVE - Radiology Data Radiology results reviewed: Yes I reviewed the patient's radiology results. Chest X-Ray 06/28/17 03:26 IMPRESSION: 1. Innumerable pulmonary nodules seen throughout the lungs consistent with known metastatic disease. These were better seen on the CT scan chest dated 06/20/2017. D/ / Gigi Wang MD / Gigi Wang MD Interpreting Provider: Gigi Wang MD Chest CTA 06/28/17 04:20 IMPRESSION: Extensive metastatic disease in the lungs, axilla, omentum, bones including thoracic spine with extraosseous epidural extension and lymph nodes. No pulmonary emboli visualized. D/ / Trevor Arguelles MD / Trevor Arguelles MD Interpreting Provider: Trevor Arguelles MD
[2017-06-28 03:40] LABS: Basophils % 0.4 %; Eosinophils % 0.4 %; Hematocrit 32.5 % (37.5-50.1); Immature Granulocytes % 9.3 % (0-4); Lymphocytes # 0.6 K/mcL (0.6-4.6); Lymphocytes % 7.7 %; Mean Corpuscular HGB Conc 32.3 g/dL (31.6-35.5); Mean Corpuscular Hemoglobin 27.8 pg (28.0-33.3); Mean Platelet Volume 10.5 fL (9.4-12.4); Monocytes # 0.6 K/mcL (0.0-1.3); Monocytes % 6.8 %; Neutrophils # 6.1 K/mcL (1.6-8.9); Platelet Count 134 K/mcL (140-400); Red Blood Count 3.78 M/mcL (4.19-5.50); Red Cell Distribution Width 17.1 % (11.5-14.5); Segmented Neutrophils % 75.4 %
[2017-06-28 03:44] LABS: Hemoglobin 10.5 g/dL (12.9-16.9)
[2017-06-28 04:05] LABS: Alanine Aminotransferase 12 Units/L (7-52); Albumin 2.8 g/dL (3.5-5.7); Albumin/Globulin Ratio 0.9 (1.1-2.2); Alkaline Phosphatase 239 Units/L (34-104); Aspartate Amino Transferase 20 Units/L (13-39); BUN/Creatinine Ratio 20 (6-26); Bilirubin,Direct 0.3 mg/dL (0.0-0.2); Bilirubin,Indirect 0.2 mg/dL (0.0-1.2); Bilirubin,Total 0.5 mg/dL (0.3-1.0); Blood Urea Nitrogen 13 mg/dL (6-20); Calcium 7.3 mg/dL (8.6-10.3); Carbon Dioxide 23 mEq/L (23-29); Chloride 99 mEq/L (98-107); Globulin 3.1 g/dL (2.4-3.5); Glucose 140 mg/dL (70-105); Osmolality,Calculated 280 (280-300); Potassium 3.2 mEq/L (3.5-5.1); Sodium 134 mEq/L (136-145); Total Protein 5.9 g/dL (6.4-8.9); eGFR For African Americans > 60 (> 60); eGFR For Non-African Americans > 60 (> 60)
[2017-06-28] MEDS ORDERED: *HR* OxyCODONE Immed Rel 5 MG TABLET PO ONE ×2 (04:16→04:22)
[2017-06-28 04:20] LABS: Anisocytosis 1+ (Not Present); Platelet Estimate Normal (Normal)
[2017-06-28] MEDS ORDERED: Isovue-370 500 ML INFUS..BTL IV ONE (04:20)
[2017-06-28 05:21] LABS: Hematocrit 27.9 % (37.5-50.1)
[2017-06-28] MEDS ORDERED: Levofloxacin 750 MG/150 ML 750 MG/150 ML BAG IVPB ONE (05:49)
[2017-06-28] MEDS ORDERED: *HR* FentaNYL (PF) 100 MCG/2 ML VIAL IVP ONE (05:58)
[2017-06-28] MEDS ORDERED: Piperacillin/Tazobactam 3.375 GM in 0.9 % Sodium Chloride Mini Bag 100 ML IVPB ONE (06:00)
[2017-06-28] MEDS ORDERED: 0.9 % Sodium Chloride 1,000 ML ONE (06:24)
[2017-06-28] MEDS: 0.9 % Sodium Chloride 1,000 ML IVC SCH ×2 (06:31→20:02)
--- NOTE | 2017-06-28 06:51 | Emergency Department Note ---
Disposition Clinical Impression: Sinus tachycardia, Metastatic melanoma, HCAP (healthcare-associated pneumonia) Disposition: Admitted As Inpatient Condition: Fair Referrals: Lashae Pop MD [Family Provider] - NONE,PCP [Primary Care Provider] - Forms: ED Satisfaction Letter General Adult HPI - General Chief complaint: ED Shortness of Breath/Dyspnea Stated complaint: SOB Time Seen by Provider: 06/28/17 03:14 Source: patient, family Mode of arrival: ambulatory Limitations: no limitations Nursing Notes Reviewed: Yes Vital Signs Reviewed: Yes - History of Present Illness Pain Scale: 7 - Related Data Home Medications Medication Instructions Recorded Confirmed OXcarbazepine [Trileptal] 300 mg PO TID 04/21/17 06/21/17 Previous Rx's Medication Instructions Recorded Ondansetron [Zofran] 8 mg PO Q8HR PRN #60 tablet 05/15/17 FentaNYL PATCH [Duragesic] 50 mcg TD Q72H 3 Days #1 patch.td72 06/07/17 Ciprofloxacin HCl [Cipro] 500 mg PO BID #10 tablet 06/26/17 Metoprolol [Lopressor] 25 mg PO BID #60 tablet 06/26/17 Polyethylene Glycol 3350 [MiraLAX] 17 gm PO DAILY PRN #30 powd.pack 06/26/17 Sennosides/Docusate Sodium [Senna 2 each PO BID PRN #60 tablet 06/26/17 Plus] metroNIDAZOLE [Flagyl] 500 mg PO TID #15 tablet 06/26/17 Allergies Allergy/AdvReac Type Severity Reaction Status Date / Time No Known Allergies Allergy Verified 06/20/17 21:21 Constitutional: Denies: fever, chills ENT ED: Denies: congestion Cardiovascular: Denies: chest pain Respiratory: Reports: dyspnea. Denies: cough, wheezes, hemoptysis Gastrointestinal: Reports: abdominal pain. Denies: nausea, vomiting Genitourinary: Denies: urgency, dysuria Musculoskeletal: Denies: back pain, neck pain Integumentary: Denies: rash, abrasion, lesions Neurological: Denies: headache Past Medical History - Past Medical History Medical history: Reports: asthma, cancer, kidney stones, seizures Surgical history: Reports: no surgical history Psychiatric history: Reports: no psych history - Social History Smoking Status: Never smoker Smokeless Tobacco Status: No Alcohol use: Reports: none Drug use: Reports: none Physical Exam - General Limitations: no limitations General appearance: alert, other (weakness, ill) Course Vital Signs Temperature 97.4 F L 06/28/17 03:05 Pulse Rate 132 06/28/17 03:05 Respiratory Rate 20 06/28/17 03:05 Blood Pressure 108/80 06/28/17 03:05 O2 Sat by Pulse Oximetry 96 06/28/17 03:05 Temperature 97.4 F L 06/28/17 03:05 Pulse Rate 115 06/28/17 06:21 Respiratory Rate 16 06/28/17 06:21 Blood Pressure 103/69 06/28/17 06:21 O2 Sat by Pulse Oximetry 97 06/28/17 06:21 Oxygen Delivery Oxygen Delivery Room Air Medical Decision Making - Lab Data Result diagrams: 06/28/17 04:20 06/28/17 03:28 Lab Results 06/28/17 06/28/17 06/28/17 Range/Units 03:28 03:28 04:20 WBC 8.1 (4.3-11.1) K/mcL RBC 3.78 L (4.19-5.50) M/mcL Hgb 10.5 L D 9.0 L D (12.9-16.9) g/dL Hct 32.5 L 27.9 L (37.5-50.1) % MCV 86.0 (83.0-100.0) fL MCH 27.8 L (28.0-33.3) pg MCHC 32.3 (31.6-35.5) g/dL RDW 17.1 H (11.5-14.5) % Plt Count 134 L (140-400) K/mcL MPV 10.5 (9.4-12.4) fL Immature Gran % 9.3 H (0-4) % Seg Neutrophils % 75.4 % Lymphocytes % 7.7 % Monocytes % 6.8 % Eosinophils % 0.4 % Basophils % 0.4 % Neutrophils # 6.1 (1.6-8.9) K/mcL Lymphocytes # 0.6 (0.6-4.6) K/mcL Monocytes # 0.6 (0.0-1.3) K/mcL Eosinophils # 0.0 (0.0-0.6) K/mcL Basophils # 0.0 (0.0-0.2) K/mcL Nucleated RBCs/100 WBC 1.0 H (0) /100 WBC Platelet Estimate Normal (Normal) Anisocytosis 1+ A (Not Present) Sodium 134 L (136-145) mEq/L Potassium 3.2 L (3.5-5.1) mEq/L Chloride 99 (98-107) mEq/L Carbon Dioxide 23 (23-29) mEq/L BUN 13 (6-20) mg/dL Creatinine 0.66 L (0.70-1.30) mg/dL Est GFR ( Amer) > 60 (> 60) Est GFR (Non-Af Amer) > 60 (> 60) BUN/Creatinine Ratio 20 (6-26) Glucose 140 H (70-105) mg/dL Calculated Osmolality 280 (280-300) Lactic Acid (0.5-2.2) mmol/L Calcium 7.3 L (8.6-10.3) mg/dL Total Bilirubin 0.5 (0.3-1.0) mg/dL Direct Bilirubin 0.3 H (0.0-0.2) mg/dL Indirect Bilirubin 0.2 (0.0-1.2) mg/dL AST 20 (13-39) Units/L ALT 12 (7-52) Units/L Alkaline Phosphatase 239 H (34-104) Units/L Serum Total Protein 5.9 L (6.4-8.9) g/dL Albumin 2.8 L (3.5-5.7) g/dL Globulin 3.1 (2.4-3.5) g/dL Albumin/Globulin Ratio 0.9 L (1.1-2.2) Blood Type Antibody Screen 06/28/17 06/28/17 Range/Units 04:44 04:44 WBC (4.3-11.1) K/mcL RBC (4.19-5.50) M/mcL Hgb (12.9-16.9) g/dL Hct (37.5-50.1) % MCV (83.0-100.0) fL MCH (28.0-33.3) pg MCHC (31.6-35.5) g/dL RDW (11.5-14.5) % Plt Count (140-400) K/mcL MPV (9.4-12.4) fL Immature Gran % (0-4) % Seg Neutrophils % % Lymphocytes % % Monocytes % % Eosinophils % % Basophils % % Neutrophils # (1.6-8.9) K/mcL Lymphocytes # (0.6-4.6) K/mcL Monocytes # (0.0-1.3) K/mcL Eosinophils # (0.0-0.6) K/mcL Basophils # (0.0-0.2) K/mcL Nucleated RBCs/100 WBC (0) /100 WBC Platelet Estimate (Normal) Anisocytosis (Not Present) Sodium (136-145) mEq/L Potassium (3.5-5.1) mEq/L Chloride (98-107) mEq/L Carbon Dioxide (23-29) mEq/L BUN (6-20) mg/dL Creatinine (0.70-1.30) mg/dL Est GFR ( Amer) (> 60) Est GFR (Non-Af Amer) (> 60) BUN/Creatinine Ratio (6-26) Glucose (70-105) mg/dL Calculated Osmolality (280-300) Lactic Acid 2.2 (0.5-2.2) mmol/L Calcium (8.6-10.3) mg/dL Total Bilirubin (0.3-1.0) mg/dL Direct Bilirubin (0.0-0.2) mg/dL Indirect Bilirubin (0.0-1.2) mg/dL AST (13-39) Units/L ALT (7-52) Units/L Alkaline Phosphatase (34-104) Units/L Serum Total Protein (6.4-8.9) g/dL Albumin (3.5-5.7) g/dL Globulin (2.4-3.5) g/dL Albumin/Globulin Ratio (1.1-2.2) Blood Type A POSITIVE Antibody Screen NEGATIVE Critical Care Time Critical Care Time: Yes Total Critical Care Time: 35 Attestation: Critical care performed: Time is exclusive of separately billable procedures. Time includes: direct patient care, patient reassessment, coordination of patient care, interpretation of data (laboratory data, radiology data, and respiratory data), review of patient's medical records, medical consultation and documentation of patient care. Procedures included in critical care time: Procedures excluded from critical care time: Attestation Statement - Attestation Attestation: ITad MD, personally evaluated this patient and discussed their management with the resident physician. I reviewed the resident's note and agree with the documented findings, medical decision making, and plan of care. 47-year-old male with history of metastatic malignant melanoma presents to the emergency department with a complaint of increasing shortness of breath over the past 2 days. He was just discharged from the hospital 2 days ago. Was on IV chemotherapy but his last chemotherapy was 4 weeks ago. He reports that since being discharged from the hospital he is just gotten weaker and more short of breath. No increased cough. No fever. No chest pain. No abdominal pain. He complains of increasing swelling and bloating of his abdomen and also swelling of the lower extremities. On examination patient is a well-developed chronically appearing male in no acute distress. He is alert and oriented 3. There is no cyanosis or diaphoresis. Extreme pallor. Very pale conjunctiva and pale lips. Chest is nontender to palpation. Breath sounds are clear and equal bilaterally. Heart regular and tachycardic. Abdomen soft and nontender with normal bowel sounds. 2+ pedal edema bilaterally. Labs reviewed. CTA shows extensive metastasis and a new right upper lobe infiltrate. Cultures obtained. Antibiotics initiated for healthcare associated pneumonia. The hospitalist, Dr. Wells, was consulted and accepted admission of the patient.
[2017-06-28] MEDS ORDERED: Naloxone 0.4 MG/ML INJ IVP PRN (07:42)
[2017-06-28] MEDS ORDERED: Ondansetron 4 MG/2 ML VIAL IVP ONE (07:43)
[2017-06-28] MEDS ORDERED: Ondansetron 4 MG/2 ML VIAL ONE (07:46)
[2017-06-28] MEDS ORDERED: *HR* FentaNYL PATCH 50 MCG PATCH TD SCH ×3 (08:30→15:30)
[2017-06-28] MEDS ORDERED: *HR* OxyCODONE Immed Rel 5 MG TABLET PO PRN (08:53)
--- NOTE | 2017-06-28 08:59 | Internal Med History&Physical ---
Date of Encounter: 06/28/17 Time of Encounter: 08:45 Internal Medicine - H&P: HPI Chief complaint: sob Admitted From: Home History of present illness: Mr. Hale is a 47 year old male history of metastatic melanoma to liver, bones was also complaining of shortness of breath. Patient is using hospital diagnosed with enteritis. Patient is some oral antibiotics. Patient returns complaining of increasing shortness of breath. Patient denies cough or sputum production but he notes dyspnea on exertion.. Patient notes abdominal bloating which is not completely resolved. Patient notes he has history of abdominal pain which currently at baseline. Patient denies melena or hematochezia. Patient denies headache, visual disturbance, neck pain or focal weakness. He denies chest pain palpitations or diaphoresis. Denies dysuria or diarrhea. Patient's initial constipation which he takes laxatives. Patient has no other complaint. Patient to be admitted for further evaluation. Past Med Surg Social Fam HX - Past Medical History Medical history: asthma, cancer, kidney stones, seizures Psychiatric history: no psych history - Past Surgical History Surgical History: no surgical history - Social History Smoking Status: Never smoker Smokeless Tobacco Status: No Alcohol use: none Drug use: none - Family History Father Hx Family Endocrine Disorder: Yes (DM) Mother Hx Family Cancer: Yes Internal Medicine - H&P: Meds OXcarbazepine [Trileptal] 300 mg PO TID 04/21/17 [History] Ondansetron [Zofran] 8 mg PO Q8HR PRN #60 tablet 05/15/17 [Rx] FentaNYL PATCH [Duragesic] 50 mcg TD Q72H 3 Days #1 patch.td72 06/07/17 [Rx] Ciprofloxacin HCl [Cipro] 500 mg PO BID #10 tablet 06/26/17 [Rx] Metoprolol [Lopressor] 25 mg PO BID #60 tablet 06/26/17 [Rx] Polyethylene Glycol 3350 [MiraLAX] 17 gm PO DAILY PRN #30 powd.pack 06/26/17 [Rx ] metroNIDAZOLE [Flagyl] 500 mg PO TID #15 tablet 06/26/17 [Rx] Oxycodone HCl [Oxaydo] 5 - 10 mg PO Q6H PRN 06/28/17 [History] 3 Allergy/AdvReac Type Severity Reaction Status Date / Time No Known Allergies Allergy Verified 06/28/17 06:56 All Systems PM: A 10-system review of systems was performed and is negative for pertinent findings except as documented above in the HPI. Review of systems: All systems have been reviewed and negative except as mentioned in history present illness - Constitutional Vitals: Temp Pulse Resp BP Pulse Ox 97.4 F L 114 16 105/69 99 06/28/17 03:05 06/28/17 07:30 06/28/17 07:30 06/28/17 07:30 06/28/17 07:30 Vital signs as above Gen.: Alternative shows calm cooperative, able to speak in full sentences HEENT: Atraumatic, normocephalic, extraoculars are intact, PERRL, there is no scleral icterus Neck: No JVD, no pain to palpation, there is full range of motion, no signs of meningismus Lungs: Diminished breath sounds in the bases, no wheezing appreciated at this time Abdomen: Soft, depressible, nontender, nondistended at this time, positive bowel sounds, no guarding, no rigidity Musculoskeletal: Patient moves all 4 extremities freely, no pain to palpation of large joints, no pinpoint spinal tenderness Neuro: Nonfocal, moves all 4 extremities, able to stand, no lateralization, cranial nerves are intact General appearance: Present: A&O X 3 Exam: Gen.: No distress, calm, cooperative, able to speak in full sentences, no conversational dyspnea HEENT: Atraumatic, normocephalic, extraocular movements are intact, PERRL, there is no scleral icterus Neck: No pain with palpation, full range of motion, no signs of JVD Heart: Normal S1-S2 Lungs: Diminished breath sounds in the bases Abdomen: Soft, depressible, nontender, nondistended, positive bowel sounds, no guarding, no rigidity Musculoskeletal: Patient moves all 4 extremities, pain on palpation of large joints, bilateral lower extremity edema Neuro: Nonfocal, no lateralization, CN are intact Psychiatric normal affect Internal Med - H&P Results - Labs CBC & Chem 7: 06/28/17 04:20 06/28/17 11:25 - Assessment and plan (1) HCAP (healthcare-associated pneumonia) Current Visit: Yes Status: Acute Assessment and plan: Patient was complaining of shortness of breath, recent hospitalization. CT of the chest negative for pulmonary embolism, troponin negative 2, patient' s shortness of breath has resolved. Patient denies ever having chest pain. CTA shows evidence of right upper lobe infiltrate Check respiratory panel, strep, Legionella urine antigens, Mycoplasma, strep throat antigen, sputum culture if able, check pro-calcitonin Empiric differential antibiotics to cover for healthcare associated pneumonia. This time there is no wheezing or hypoxemia. Patient received 1 dose steroids. Consider repeating dose pending clinical course. Consider pulmonary consultation pending clinical course (2) Metastatic melanoma Current Visit: Yes Status: Acute Assessment and plan: Patient to be seen by his primary oncologist. Metastatic spread of bony metastasis. At this time patient notes chronic pain and back pain. His pain has not severely worsen. Patient reassessed in notes current pain management has improved his pain. At this time will continue current pain management. Patient currently in dynamically neurologically intact. Further recommendations pending oncology evaluation (3) Sinus tachycardia Current Visit: Yes Status: Chronic Assessment and plan: Patient has history of sinus tachycardia since being diagnosed with cancer. Etiology appears to be multifactorial. Patient denies chest pain. Patient had previous echocardiogram showed an EF of 60-65%, mild left ventricular diastolic dysfunction Sinus tachycardia persists patient may require cardiology consultation. This has been ongoing issue since diagnosed with carcinoma (4) Anemia Current Visit: No Status: Acute Assessment and plan: Patient denies blood loss. He denies melena or hematochezia. CT abdomen and pelvis on previous admission shows thickening of the terminal ileum compatible with enteritis. Cannot rule out possible progression carcinoma as well. Will guaic all stools, check iron panel At this time no detection of ascites. When asked patient notes his bloating has completely resolved. Check abdominal ultrasound. Hold on paracentesis until ultrasound given patient has noted his abdominal bloating has resolved. Patient denies abdominal pain at this time. Patient may require GI consultation pending repeat laboratory data, US Qualifiers: Anemia type: unspecified type Qualified Code(s): D64.9 - Anemia, unspecified (5) DVT prophylaxis Current Visit: No Status: Acute Assessment and plan: SCDs for DVT prophylaxis. LE ultrasound negative for DVT. We will repeat CBC. Pending repeat CBC if patient hemoglobin remained stable can be started on chemical prophylaxis (6) Hypokalemia Current Visit: No Status: Acute - Time Spent With Patient Total time spent is greater than 50% in coordination of care (as documented) at patient's floor/unit and/or counseling patient:
[2017-06-28] MEDS ORDERED: Albuterol 2.5 MG/3 ML NEBULIZER IH PRN (09:04)
[2017-06-28] MEDS ORDERED: Vancomycin (wt based) 1,000 MG VIAL IVPB SCH (10:00)
[2017-06-28] MEDS: OXcarbazepine 150 MG TABLET PO SCH ×3 (10:09→20:20)
[2017-06-28 11:27] LABS: Adenovirus Not Detected (Not Detect); Bordetella Pertussis Not Detected (Not Detect); Chlamydophila pneumoniae Not Detected (Not Detect); Coronavirus 229E Not Detected (Not Detect); Coronavirus HKU1 Not Detected (Not Detect); Coronavirus NL63 Not Detected (Not Detect); Coronavirus OC43 Not Detected (Not Detect); Human Metapneumovirus Not Detected (Not Detect); Human Rhinovirus/Enterovirus ***DETECTED*** (Not Detect); Influenza A Subtype 2009 H1 Not Detected (Not Detect); Influenza A Untypeable Not Detected (Not Detect); Influenza B Not Detected (Not Detect); Mycoplasma pneumoniae Not Detected (Not Detect); Parainfluenza Virus 1 Not Detected (Not Detect); Parainfluenza Virus 2 Not Detected (Not Detect); Parainfluenza Virus 3 Not Detected (Not Detect); Parainfluenza Virus 4 Not Detected (Not Detect); Respiratory Syncytial Virus Not Detected (Not Detect)
[2017-06-28] MEDS: *HR* FentaNYL (PF) 100 MCG/2 ML VIAL IVP PRN ×3 (11:37→20:20)
--- NOTE | 2017-06-28 11:41 | Oncology Inp Consult Note ---
<Grace Henderson - Last Filed: 06/28/17 17:13> Date of Encounter: 06/28/17 Time of Encounter: 11:38 Assessment and Plan (1) Constipation Status: Acute Assessment and plan: Acute abdominal series shows no evidence of obstruction. He had regular BM about 2-3 days ago followed by loose stool. Continue miralax daily. Qualifiers: Qualified Code(s): K59.03 - Drug induced constipation (2) Metastatic melanoma Status: Acute Assessment and plan: Radiographic evidence of progression. Nivolumab therapy has been stopped. He is planned to start treatment with dabrafenib and tremetinib denise. Following multiple discussions today, medication is approved and will be shipped to [facility] pharmacy tomorrow. Once delivered he will plan to start treatment in house denise. (3) HCAP (healthcare-associated pneumonia) Status: Acute Assessment and plan: CT chest notes infiltrate in right apex. ER obtained cultures. He is on levaquin, vancomycin and cefepime. Given his history of immunotherapy treatment with Nivolumab he is at risk for immune mediated side effects. Given the acute onset of SOB and CT findings, He presents as though he may have grade 2 pneumonitis, we will empirically treat him with steroids to see if this helps to resolve his symptoms. Will titrate accordingly. PPI started with steroid therapy. He is concerned about quality of sleep with steroid therapy. Will order benadryl PRN along with melatonin. (4) Ascites Status: Acute Assessment and plan: CT abdomen/pelvis from 06/20 noted moderate amount of ascites which is newly accumulated, along with new omental metastatic implants. Since his prior admission, distention clinically appears to have increased. Patient reports discomfort from distention. Ordered ultrasound to assess degree of fluid accumulation and role for therapeutic paracentesis. NPO after midnight to prep for paracentesis if necessary tomorrow Qualifiers: Qualified Code(s): R18.8 - Other ascites - Data of Consult Patient: known to practice within the last 3 years Consult date: 06/28/17 Requesting Physician: Maylin Mendoza CNP Primary Care Provider: PCP BUFFY Family Provider: Lashae Pop - Consult Narrative Reason for consult: Metastatic melanoma History of present illness: Mr. Hale is a 47 year old male with metastatic melanoma, stage IV mets to bone, lung and liver lesions, rt axillary adenopathy Started C1 nivolumab 05/09/17, C2 05/23/2017, C3 06/07/2017. He also received palliative RT from 05/11/2017 - 05/24/2017 to Right shoulder ( including T2-T4) and L4-S3, 3000 cGy to each site. He takes Megace for appetite. He also receives Denosumab for bone health and prevention of SRE Q4 weeks , last received 06/07/17. He is BRAF positive and a candidate for dabrafenib, trametinib therapy, which he is planned to start as soon as medication is approved and shipped. Nivolumab treatment therefore stopped at this time. He previously presented to [facility] ER on 06/20/2017 with complaint of a 5-6 day history of abdominal pain with distention and associated dry heaving along with 2-3 week history of worsening lower back pain. He was admitted for enteritis and pain control for pathologic fractures involving the rightward aspect of the sacrum and the right inferior pubic ramus. Following his discharge home, he has experienced spells of tachycardia and SOB with a near syncopal feeling. He experiences worsening SOB with exertion. He continues to have issues with poor appetite, constipation and dry heaving. He has been admitted with pneumonia Past Med Surg Social Fam HX - Past Medical History Medical history: asthma, cancer, kidney stones, seizures Psychiatric history: no psych history - Past Surgical History Surgical History: no surgical history - Social History Smoking Status: Never smoker Smokeless Tobacco Status: No Alcohol use: none Drug use: none - Family History Father Hx Family Endocrine Disorder: Yes (DM) Mother Hx Family Cancer: Yes Medications and Allergies OXcarbazepine [Trileptal] 300 mg PO TID 04/21/17 [History] Ondansetron [Zofran] 8 mg PO Q8HR PRN #60 tablet 05/15/17 [Rx] FentaNYL PATCH [Duragesic] 50 mcg TD Q72H 3 Days #1 patch.td72 06/07/17 [Rx] Ciprofloxacin HCl [Cipro] 500 mg PO BID #10 tablet 06/26/17 [Rx] Metoprolol [Lopressor] 25 mg PO BID #60 tablet 06/26/17 [Rx] Polyethylene Glycol 3350 [MiraLAX] 17 gm PO DAILY PRN #30 powd.pack 06/26/17 [Rx ] metroNIDAZOLE [Flagyl] 500 mg PO TID #15 tablet 06/26/17 [Rx] Oxycodone HCl [Oxaydo] 5 - 10 mg PO Q6H PRN 06/28/17 [History] 3 Allergy/AdvReac Type Severity Reaction Status Date / Time No Known Allergies Allergy Verified 06/28/17 06:56 Constitutional: Present: as per HPI, anorexia, fatigue, weakness, weight loss. Absent: chills, fever(s), frequent falls Eyes: Absent: change in vision Nose, mouth and throat: Absent: dysphagia Cardiovascular: Present: dyspnea on exertion, edema, lightheadedness, rapid heart rate. Absent: chest pain, irregular heart rhythm, orthopnea Respiratory: Present: dyspnea on exertion Gastrointestinal: Present: abdominal pain, bloating, constipation, early satiety , nausea, other (retching). Absent: dysphagia, hematemesis, hematochezia, melena, vomiting Additional comments: denies dysuria or hematuria Musculoskeletal: Present: muscle weakness Integumentary: Absent: wounds Neurological: Absent: focal weakness Psychiatric: Present: change in appetite Hematologic/Lymphatic: Present: as per HPI Oncology - Exam - Constitutional Vitals: Temp Pulse Resp BP Pulse Ox 97.8 F 107 15 98/64 94 06/28/17 11:07 06/28/17 11:07 06/28/17 11:07 06/28/17 11:07 06/28/17 11:07 General appearance: cooperative, no acute distress, no febrile Exam: chronically ill appearing - Head Head exam: Present: atraumatic - ENT ENT exam: Present: mucous membranes moist - Respiratory Respiratory exam: Present: CTAB. Absent: respiratory distress - Cardiovascular Cardiovascular exam: Present: RRR, +S1, +S2, tachycardia - GI/Abdominal GI/Abdominal exam: Present: distended, normal bowel sounds, soft. Absent: guarding, rebound, tenderness - Extremities Exam Extremities exam: Absent: calf tenderness Additional comments: 2+ pitting BLE - Neurological Exam Neurological exam: Present: alert, oriented X3, no focal deficits, strengths equal and symetr throughout - Psychiatric Psychiatric exam: Present: flat affect - Skin Skin exam: Present: dry, intact, pallor, warm Oncology - Results Labs: Cardiac Enzymes 06/28/17 Range/Units 08:33 Troponin I < 0.03 (< 0.04) ng/mL Consult Discharge Plan - Plan Referrals: NONE,PCP [Primary Care Provider] - Lashae Pop MD [Family Provider] - <KikiZack S - Last Filed: 06/29/17 07:24> Date of Encounter: 06/29/17 - Data of Consult Requesting Physician: Maylin Mendoza CNP Primary Care Provider: PCP NONE Family Provider: Lashae Pop - Consult Narrative History of present illness: Mr. Hale is a 47 year old male Oncology - Exam - Constitutional Vitals: Temp Pulse Resp BP Pulse Ox 98.4 F 130 14 117/76 93 06/29/17 07:17 06/29/17 07:17 06/29/17 07:17 06/29/17 07:17 06/29/17 07:17 Oncology - Results Labs: Short CBC 06/29/17 Range/Units 04:50 WBC 8.8 (4.3-11.1) K/mcL Hgb 8.5 L (12.9-16.9) g/dL Hct 26.4 L (37.5-50.1) % Plt Count 107 L (140-400) K/mcL Neutrophils # 7.9 (1.6-8.9) K/mcL BMP 06/28/17 06/29/17 11:25 04:00 Sodium 135 L Potassium 3.3 L 3.7 Chloride 102 Carbon Dioxide 24 BUN 14 Creatinine 0.69 L Glucose 117 H Calcium 6.7 L Cardiac Enzymes 06/28/17 06/28/17 06/28/17 Range/Units 08:33 13:45 20:28 Troponin I < 0.03 < 0.03 < 0.03 (< 0.04) ng/mL Liver Function 06/29/17 Range/Units 04:00 Total Bilirubin 0.4 (0.3-1.0) mg/dL AST 19 (13-39) Units/L ALT 10 (7-52) Units/L Alkaline Phosphatase 189 H (34-104) Units/L Albumin 2.6 L (3.5-5.7) g/dL Urine 06/28/17 Range/Units 12:25 Urine Color Dark Yellow (Yellow) Urine Clarity Clear (Clear) Urine pH 6.0 (5.0-8.0) pH Units Ur Specific [place] > 1.030 H (1.010-1.025) Urine Protein 100 H (Neg-Trace) mg/dL Urine Glucose (UA) Normal (Normal) mg/dL - Attending Attestation I have seen and examined Mr. Hale and agree with the assessment by Ms. henderson. Patient has progressive metastatic melanoma. He has no pulmonary, hepatic as well as intra-abdominal carcinomatosis. Examination today reveals shifting dullness and increased abdominal distention from our last visit. I recommended ultrasound-guided paracentesis as he is having increased discomfort and increased shortness of breath as well. We will arrange for this tomorrow. We have also secured his mekinist and dabrafenib, and he is initiate therapy tomorrow upon office assistant receptionist. I agree with continuing steroids for possible immune mediated pneumonitis as well as antibiotics for possible hospital-acquired pneumonia.
[2017-06-28 12:18] LABS: Magnesium 1.9 mg/dL (1.6-2.6); Potassium 3.3 mEq/L (3.5-5.1)
[2017-06-28 12:40] LABS: Bilirubin,Urine Small (Negative); Blood,Urine Negative (Negative); Clarity,Urine Clear (Clear); Color,Urine Dark Yellow (Yellow); Glucose,Urine (UA) Normal (Normal); Ketones,Urine Trace mg/dL (Negative); Leukocyte Esterase,Urine Negative (Negative); Nitrite,Urine Negative (Negative); Protein,Urine 100 mg/dL (Neg-Trace); Specific Gravity,Urine > 1.030 (1.010-1.025); Urobilinogen,Urine Normal (Normal)
[2017-06-28 12:41] LABS: Bacteria,Urine None Seen per hpf (None-Few); Hyaline Casts,Urine None Seen per lpf (None-Few); Squamous Epithelial Cell,Urine Many per lpf (None-Few)
[2017-06-28] MEDS: predniSONE 20 MG TABLET PO SCH (14:04)
[2017-06-28] MEDS ORDERED: Morphine Oral CONC 5 MG/0.25 ML ORAL.SYG PO PRN (14:29)
[2017-06-28] MEDS ORDERED: *HR* FentaNYL PATCH 25 MCG PATCH TD SCH (15:30)
[2017-06-28] MEDS: Cefepime HCl 2,000 MG in Water for inj. (sterile) 20 ML 20 ML IVP SCH ×2 (15:34→23:36)
[2017-06-28] MEDS: *HR* Morphine Soln 10 MG/5 ML UDC PO PRN ×2 (18:05→21:54)
[2017-06-29] MEDS: *HR* FentaNYL (PF) 100 MCG/2 ML VIAL IVP PRN ×3 (00:33→09:25)
[2017-06-29] MEDS: *HR* Morphine Soln 10 MG/5 ML UDC PO PRN ×5 (02:21→22:38)
[2017-06-29 05:21] LABS: Hematocrit 26.4 % (37.5-50.1); Hemoglobin 8.5 g/dL (12.9-16.9); Mean Corpuscular HGB Conc 32.2 g/dL (31.6-35.5); Mean Corpuscular Hemoglobin 27.9 pg (28.0-33.3); Mean Corpuscular Volume 86.6 fL (83.0-100.0); Mean Platelet Volume 10.7 fL (9.4-12.4); Nucleated Red Blood Cells 1.3 /100 WBC (0); Platelet Count 107 K/mcL (140-400); Red Blood Count 3.05 M/mcL (4.19-5.50); Red Cell Distribution Width 17.2 % (11.5-14.5)
[2017-06-29 05:21] LABS: Alanine Aminotransferase 10 Units/L (7-52); Albumin 2.6 g/dL (3.5-5.7); Alkaline Phosphatase 189 Units/L (34-104); Aspartate Amino Transferase 19 Units/L (13-39); BUN/Creatinine Ratio 20 (6-26); Bilirubin,Total 0.4 mg/dL (0.3-1.0); Blood Urea Nitrogen 14 mg/dL (6-20); Calcium 6.7 mg/dL (8.6-10.3); Carbon Dioxide 24 mEq/L (23-29); Chloride 102 mEq/L (98-107); Globulin 2.6 g/dL (2.4-3.5); Glucose 117 mg/dL (70-105); Magnesium 1.9 mg/dL (1.6-2.6); Osmolality,Calculated 282 (280-300); Potassium 3.7 mEq/L (3.5-5.1); Sodium 135 mEq/L (136-145); Total Protein 5.2 g/dL (6.4-8.9); eGFR For African Americans > 60 (> 60); eGFR For Non-African Americans > 60 (> 60)
[2017-06-29 05:23] LABS: INR 1.3; Prothrombin Time 14.4 Seconds (9.4-12.1)
[2017-06-29 05:40] LABS: Lymphocytes # 0.4 K/mcL (0.6-4.6); Monocytes # 0.5 K/mcL (0.0-1.3); Neutrophils # 7.9 K/mcL (1.6-8.9); Platelet Estimate Decreased (Normal)
[2017-06-29] MEDS: Levofloxacin 750 MG/150 ML 750 MG/150 ML BAG IVPB SCH (08:15)
[2017-06-29] MEDS: OXcarbazepine 150 MG TABLET PO SCH ×3 (08:15→20:15)
[2017-06-29] MEDS: Cefepime HCl 2,000 MG in Water for inj. (sterile) 20 ML 20 ML IVP SCH ×3 (08:16→23:58)
--- NOTE | 2017-06-29 10:30 | Internal Med Progress Note ---
Date of Encounter: 06/29/17 Time of Encounter: 10:15 - Assessment and plan (1) DVT prophylaxis Current Visit: Yes Status: Acute Assessment and plan: SCDs ordered, no placed. LE ultrasound negative for DVT. (2) Hypokalemia Current Visit: Yes Status: Acute Assessment and plan: Resolved. Continue to monitor. (3) Anemia Current Visit: Yes Status: Acute Assessment and plan: No acute blood loss, denies melena or hematochezia. Urine negative for blood. Stool occult blood ordered, iron low, ferritin elevated, B12 WNL. Oncology COMPONENT ASSEMBLER will discuss with MD for recommendations on supplements. Hgb 8.5 today, will continue to trend. Qualifiers: Anemia type: unspecified type Qualified Code(s): D64.9 - Anemia, unspecified (4) Sinus tachycardia Current Visit: Yes Status: Chronic Assessment and plan: Patient has history of sinus tachycardia since being diagnosed with cancer. Denies chest pain. Patient had previous echocardiogram showed an EF of 60-65%, mild left ventricular diastolic dysfunction Pt currently takes Metoprolol 25mg po BID, will increase to 50mg po BID and assess for effectiveness. Consider cardiology consultation. (5) Metastatic melanoma Current Visit: Yes Status: Acute Assessment and plan: Oncology following. At this time patient notes chronic pain and back pain that he states is controlled. Continue current pain medications. Will start treatment with dabrafenib and tremetinib. (6) HCAP (healthcare-associated pneumonia) Current Visit: Yes Status: Acute Assessment and plan: Pt with recent history of increased SOB. CT of the chest negative for pulmonary embolism, troponin negative 2, patient' s shortness of breath has resolved. CTA shows evidence of right upper lobe infiltrate Respiratory infectious panel positive for entero/rhinovirus Treat empirically for HCAP with Cefepime and Vancomycin. Patient received 1 dose po steroids. Continue supportive treatment and telemetry. Duonebs q4h prn Mucinex 600mg po BID prn (7) Ascites Current Visit: Yes Status: Acute Assessment and plan: Pt with metastases to liver. US shows large volume abdominal ascites. Paracentesis scheduled with IR today. Continue to monitor. Qualifiers: Qualified Code(s): R18.8 - Other ascites - Time Spent With Patient Total time spent is greater than 50% in coordination of care (as documented) at patient's floor/unit and/or counseling patient: less than 15 minutes - Subjective Interval history: Pt was seen and assessed at bedside at 1015, at bedside. All questions answered. Pt drowsy, sleeps intermittently throughout assessment. Pt denies pain , states that he is hungry and thirsty and is requesting that we hurry and get paracentesis done. He denies headache,n/v, chest pain. Pt is visibly SOB, though he denies being bothered by it, states that he has improved. - Constitutional Vitals: Temp Pulse Resp BP Pulse Ox 98.4 F 130 14 117/76 93 06/29/17 07:17 06/29/17 07:17 06/29/17 07:17 06/29/17 07:17 06/29/17 07:17 General appearance: Present: mild distress, A&O X 3, pleasant, answers questions appropriately - Head Head exam: Present: atraumatic, normal inspection, normocephalic - Eye Eye exam: Present: normal appearance, conjuntiva pink, sclera anicteric - Neck Neck exam general surgery: Present: normal inspection, supple, trachea midline. Absent: lymphadenopathy - Respiratory Respiratory exam: Present: decreased breath sounds, CTAB, respiratory distress. Absent: accessory muscle use, rales, rhonchi, wheezes Additional comments: Mild respiratory distress. - Cardiovascular Cardiovascular exam: Present: RRR, +S1, +S2, tachycardia. Absent: bradycardia, diastolic murmur, gallop, rubs, systolic murmur - GI/Abdominal GI/Abdominal exam: Present: distended, firm, normal bowel sounds. Absent: tenderness - Extremities Exam Extremities exam: Present: pedal edema, warm, radial pulses palpable and symmetrical. Absent: calf tenderness, cyanotic, tenderness Additional comments: +2-+3 pitting edema, BLE. - Neurological Exam Neurological exam: Present: alert, oriented X3, no focal deficits. Absent: facial droop, speech deficit - Skin Skin exam: Present: dry, intact, normal color, warm. Absent: rash Internal Medicine: Result - Labs CBC & Chem 7: 06/29/17 04:50 06/29/17 04:00 Labs: Short CBC 06/29/17 Range/Units 04:50 WBC 8.8 (4.3-11.1) K/mcL Hgb 8.5 L (12.9-16.9) g/dL Hct 26.4 L (37.5-50.1) % Plt Count 107 L (140-400) K/mcL Neutrophils # 7.9 (1.6-8.9) K/mcL BMP 06/28/17 06/29/17 11:25 04:00 Sodium 135 L Potassium 3.3 L 3.7 Chloride 102 Carbon Dioxide 24 BUN 14 Creatinine 0.69 L Glucose 117 H Calcium 6.7 L Cardiac Enzymes 06/28/17 06/28/17 Range/Units 13:45 20:28 Troponin I < 0.03 < 0.03 (< 0.04) ng/mL Liver Function 06/29/17 Range/Units 04:00 Total Bilirubin 0.4 (0.3-1.0) mg/dL AST 19 (13-39) Units/L ALT 10 (7-52) Units/L Alkaline Phosphatase 189 H (34-104) Units/L Albumin 2.6 L (3.5-5.7) g/dL Urine 06/28/17 Range/Units 12:25 Urine Color Dark Yellow (Yellow) Urine Clarity Clear (Clear) Urine pH 6.0 (5.0-8.0) pH Units Ur Specific [place] > 1.030 H (1.010-1.025) Urine Protein 100 H (Neg-Trace) mg/dL Urine Glucose (UA) Normal (Normal) mg/dL - ABG Interpretation ABG results: PT/INR, D-dimer PT 14.4 Seconds (9.4-12.1) H 06/29/17 04:50 - Impressions Impressions Abdomen Ultrasound 06/28/17 17:21 IMPRESSION: Large volume abdominal ascites. D/ / Paul Garcia / Paul Garcia Interpreting Provider: Paul Garcia Consult Discharge Plan - Plan Referrals: Lashae Pop MD [Family Provider] - NONE,PCP [Primary Care Provider] -
[2017-06-29] MEDS: Ipratropium/Albuterol Neb 3 ML IH SCH ×4 (11:11→23:35)
--- NOTE | 2017-06-29 11:13 | Oncology Inp Progress Note ---
<Grace Henderson L - Last Filed: 06/29/17 18:12> Date of Encounter: 06/29/17 Time of Encounter: 11:13 (1) Constipation Current Visit: Yes Status: Acute Assessment and plan: Acute abdominal series shows no evidence of obstruction. He had regular BM about 2-3 days ago followed by loose stool. Continue miralax daily. Qualifiers: Qualified Code(s): K59.03 - Drug induced constipation (2) Metastatic melanoma Current Visit: Yes Status: Acute Assessment and plan: Radiographic evidence of progression. Nivolumab therapy has been stopped. He has started treatment with dabrafenib and tremetinib today. These medications are generally very well tolerated, common side effects of which he may expect were discussed again today. He will continue to follow up with Dr. Reynaga on an outpatient basis for continued monitoring. Pain well controlled. His fentanyl patch has been increased to 75 mcg, he is taking morphine 10 mg Q4H PRN which appears to be controlling his pain well. (3) HCAP (healthcare-associated pneumonia) Current Visit: Yes Status: Acute Assessment and plan: CT chest notes infiltrate in right apex. ER obtained cultures. He is on levaquin, vancomycin and cefepime. Given his history of immunotherapy treatment with Nivolumab he is at risk for immune mediated side effects, he started 60 mg prednisone daily yesterday. PPI support ordered as well. He reports great improvement in his SOB since his admission, likely due to combination of treatment including his paracentesis today. (4) Ascites Current Visit: Yes Status: Acute Assessment and plan: S/P abdominal paracentesis with 3L serous fluid removed. He reports improvement within his symptoms of SOB and abdominal distention. General future approach to ascites or recurrent ascites was discussed. Will monitor for recurrent ascites or need for pleurx cath placement in future if needed. His ascites is likely secondary to his malignancy and invasion of malignancy within the liver/peritoneum To aid in his fluid retention with associated edema and ascites, I have ordered lasix and aldactone PO. Qualifiers: Qualified Code(s): R18.8 - Other ascites (5) Anemia Current Visit: Yes Status: Acute Assessment and plan: Secondary to anemia of chronic disease and metastatic burden. Please refer to Dr. Swanson's attestation below for additional details. Qualifiers: Anemia type: unspecified type Qualified Code(s): D64.9 - Anemia, unspecified - Constitutional Vitals: Vital Signs Temp Pulse Resp BP Pulse Ox 06/29/17 07:17 98.4 F 130 14 117/76 93 06/29/17 04:05 98.6 F 123 18 111/73 94 06/28/17 22:49 98.8 F 107 16 116/78 94 06/28/17 18:59 98.0 F 126 16 112/75 96 06/28/17 15:57 98.0 F 125 20 117/83 97 06/28/17 13:49 117 16 102/68 98 Intake and Output 06/28/17 06/29/17 06/29/17 23:59 07:59 15:59 Intake Total 270 / 270 Output Total 200 / 200 100 / 100 Balance 70 / 70 -100 / -100 Intake: IV Fluids 270 / 270 Maxipime 2,000 MG In Water for 20 / 20 inj. (sterile) 20 ML @ 300 mls/ hr IVP Q8HR [facility] Rx#:[id number] Vancocin 1,250 MG In 0.9 % 250 / 250 Sodium Chloride 250 ML @ 166.67 mls/hr IVPB Q12H [facility] Rx#: [id number] Output: Urine 200 / 200 100 / 100 Other: Weight 92.986 kg Patient Weight 06/29/17 23:59 Weight 92.986 kg Oncology: Obj Data - Labs CBC & Chem 7: 06/29/17 11:40 06/29/17 04:00 Labs: Laboratory Results - last 24 hr 06/28/17 06/28/17 06/28/17 10:21 11:25 11:25 WBC RBC Hgb Hct MCV MCH MCHC RDW Plt Count MPV Seg Neutrophils % Band Neutrophils % Lymphocytes % Monocytes % Neutrophils # Lymphocytes # Monocytes # Nucleated RBCs/100 WBC Platelet Estimate PT INR Sodium Potassium 3.3 L Chloride Carbon Dioxide BUN Creatinine Est GFR ( Amer) Est GFR (Non-Af Amer) BUN/Creatinine Ratio Glucose Calculated Osmolality Lactic Acid 1.8 Calcium Magnesium 1.9 Total Bilirubin AST ALT Alkaline Phosphatase Troponin I Serum Total Protein Albumin Globulin Albumin/Globulin Ratio Urine Color Urine Clarity Urine pH Ur Specific [place] Urine Protein Urine Glucose (UA) Urine Ketones Urine Blood Urine Nitrite Urine Bilirubin Urine Urobilinogen Ur Leukocyte Esterase Urine Microscopic RBC Urine Microscopic WBC Ur Squamous Epith Cells Urine Bacteria Hyaline Casts Stool Occult Blood Chlamy pneumoniae PCR Not Detected Adenovirus (PCR) Not Detected B. pertussis DNA (PCR) Not Detected B.parapertussis DNA PCR Not Detected Coronavirus OC43 (PCR) Not Detected Coronavirus HKU1 (PCR) Not Detected Coronavirus 229E (PCR) Not Detected Coronavirus NL63 (PCR) Not Detected Human Metapneumovir PCR Not Detected Influenza A (H1) PCR Not Detected Influ A (H1N1/09) PCR Not Detected Influenza A (H3) PCR Not Detected Influenza A Untype (PCR) Not Detected Influenza Type B (PCR) Not Detected M.pneumoniae DNA (PCR) Not Detected Parainfluenza 1 (PCR) Not Detected Parainfluenza 2 (PCR) Not Detected Parainfluenza 3 (PCR) Not Detected Parainfluenza 4 (PCR) Not Detected RSV (PCR) Not Detected Entero/Rhino (PCR) DETECTED A 06/28/17 06/28/17 06/28/17 12:25 13:45 17:10 WBC RBC Hgb Hct MCV MCH MCHC RDW Plt Count MPV Seg Neutrophils % Band Neutrophils % Lymphocytes % Monocytes % Neutrophils # Lymphocytes # Monocytes # Nucleated RBCs/100 WBC Platelet Estimate PT INR Sodium Potassium Chloride Carbon Dioxide BUN Creatinine Est GFR ( Amer) Est GFR (Non-Af Amer) BUN/Creatinine Ratio Glucose Calculated Osmolality Lactic Acid Calcium Magnesium Total Bilirubin AST ALT Alkaline Phosphatase Troponin I < 0.03 Serum Total Protein Albumin Globulin Albumin/Globulin Ratio Urine Color Dark Yellow Urine Clarity Clear Urine pH 6.0 Ur Specific [place] > 1.030 H Urine Protein 100 H Urine Glucose (UA) Normal Urine Ketones Trace H Urine Blood Negative Urine Nitrite Negative Urine Bilirubin Small H Urine Urobilinogen Normal Ur Leukocyte Esterase Negative Urine Microscopic RBC 3-5 H Urine Microscopic WBC 5-15 H Ur Squamous Epith Cells Many H Urine Bacteria None Seen Hyaline Casts None Seen Stool Occult Blood Negative Chlamy pneumoniae PCR Adenovirus (PCR) B. pertussis DNA (PCR) B.parapertussis DNA PCR Coronavirus OC43 (PCR) Coronavirus HKU1 (PCR) Coronavirus 229E (PCR) Coronavirus NL63 (PCR) Human Metapneumovir PCR Influenza A (H1) PCR Influ A (H1N1/09) PCR Influenza A (H3) PCR Influenza A Untype (PCR) Influenza Type B (PCR) M.pneumoniae DNA (PCR) Parainfluenza 1 (PCR) Parainfluenza 2 (PCR) Parainfluenza 3 (PCR) Parainfluenza 4 (PCR) RSV (PCR) Entero/Rhino (PCR) 06/28/17 06/29/17 06/29/17 20:28 04:00 04:50 WBC 8.8 RBC 3.05 L Hgb 8.5 L Hct 26.4 L MCV 86.6 MCH 27.9 L MCHC 32.2 RDW 17.2 H Plt Count 107 L MPV 10.7 Seg Neutrophils % 82.0 Band Neutrophils % 8.0 H Lymphocytes % 4.0 Monocytes % 6.0 Neutrophils # 7.9 Lymphocytes # 0.4 L Monocytes # 0.5 Nucleated RBCs/100 WBC 1.3 H Platelet Estimate Decreased L PT INR Sodium 135 L Potassium 3.7 Chloride 102 Carbon Dioxide 24 BUN 14 Creatinine 0.69 L Est GFR ( Amer) > 60 Est GFR (Non-Af Amer) > 60 BUN/Creatinine Ratio 20 Glucose 117 H Calculated Osmolality 282 Lactic Acid Calcium 6.7 L Magnesium 1.9 Total Bilirubin 0.4 AST 19 ALT 10 Alkaline Phosphatase 189 H Troponin I < 0.03 Serum Total Protein 5.2 L Albumin 2.6 L Globulin 2.6 Albumin/Globulin Ratio 1.0 L Urine Color Urine Clarity Urine pH Ur Specific [place] Urine Protein Urine Glucose (UA) Urine Ketones Urine Blood Urine Nitrite Urine Bilirubin Urine Urobilinogen Ur Leukocyte Esterase Urine Microscopic RBC Urine Microscopic WBC Ur Squamous Epith Cells Urine Bacteria Hyaline Casts Stool Occult Blood Chlamy pneumoniae PCR Adenovirus (PCR) B. pertussis DNA (PCR) B.parapertussis DNA PCR Coronavirus OC43 (PCR) Coronavirus HKU1 (PCR) Coronavirus 229E (PCR) Coronavirus NL63 (PCR) Human Metapneumovir PCR Influenza A (H1) PCR Influ A (H1N1/09) PCR Influenza A (H3) PCR Influenza A Untype (PCR) Influenza Type B (PCR) M.pneumoniae DNA (PCR) Parainfluenza 1 (PCR) Parainfluenza 2 (PCR) Parainfluenza 3 (PCR) Parainfluenza 4 (PCR) RSV (PCR) Entero/Rhino (PCR) 06/29/17 04:50 WBC RBC Hgb Hct MCV MCH MCHC RDW Plt Count MPV Seg Neutrophils % Band Neutrophils % Lymphocytes % Monocytes % Neutrophils # Lymphocytes # Monocytes # Nucleated RBCs/100 WBC Platelet Estimate PT 14.4 H INR 1.3 Sodium Potassium Chloride Carbon Dioxide BUN Creatinine Est GFR ( Amer) Est GFR (Non-Af Amer) BUN/Creatinine Ratio Glucose Calculated Osmolality Lactic Acid Calcium Magnesium Total Bilirubin AST ALT Alkaline Phosphatase Troponin I Serum Total Protein Albumin Globulin Albumin/Globulin Ratio Urine Color Urine Clarity Urine pH Ur Specific [place] Urine Protein Urine Glucose (UA) Urine Ketones Urine Blood Urine Nitrite Urine Bilirubin Urine Urobilinogen Ur Leukocyte Esterase Urine Microscopic RBC Urine Microscopic WBC Ur Squamous Epith Cells Urine Bacteria Hyaline Casts Stool Occult Blood Chlamy pneumoniae PCR Adenovirus (PCR) B. pertussis DNA (PCR) B.parapertussis DNA PCR Coronavirus OC43 (PCR) Coronavirus HKU1 (PCR) Coronavirus 229E (PCR) Coronavirus NL63 (PCR) Human Metapneumovir PCR Influenza A (H1) PCR Influ A (H1N1/09) PCR Influenza A (H3) PCR Influenza A Untype (PCR) Influenza Type B (PCR) M.pneumoniae DNA (PCR) Parainfluenza 1 (PCR) Parainfluenza 2 (PCR) Parainfluenza 3 (PCR) Parainfluenza 4 (PCR) RSV (PCR) Entero/Rhino (PCR) - Impressions Impressions Abdomen Ultrasound 06/28/17 17:21 IMPRESSION: Large volume abdominal ascites. D/ / Paul Garcia / Paul Garcia Interpreting Provider: Paul Garcia - ABG Interpretation ABG results: PT/INR, D-dimer PT 14.4 Seconds (9.4-12.1) H 06/29/17 04:50 Consult Discharge Plan - Plan Referrals: Zeus Bowen MD [Partnered Physician] - 07/03/17 8:00 am <Zack Swanson - Last Filed: 06/29/17 21:42> Date of Encounter: 06/29/17 - Constitutional Vitals: Vital Signs Temp Pulse Resp BP Pulse Ox 06/29/17 21:38 121 111/68 06/29/17 20:41 20 93 06/29/17 19:46 97.8 F 120 17 105/66 95 06/29/17 15:56 98.1 F 120 14 147/77 94 06/29/17 07:17 98.4 F 130 14 117/76 93 06/29/17 04:05 98.6 F 123 18 111/73 94 06/28/17 22:49 98.8 F 107 16 116/78 94 Intake and Output 06/29/17 06/29/17 06/30/17 08:59 16:59 00:59 Intake Total 20 20 400 / 400 Output Total 100 / 100 Balance -80 / -80 400 / 400 Intake: IV Fluids Maxipime 2,000 MG In Water for inj. (sterile) 20 ML @ 300 mls/ hr IVP Q8HR [facility] Rx#:[id number] Oral 400 / 400 Output: Urine 100 / 100 Other: Meal Dinner Percent of Meal Consumed 10% Weight 92.986 kg Patient Weight 06/30/17 00:59 Weight 92.986 kg Oncology: Obj Data - Labs CBC & Chem 7: 06/29/17 11:40 06/29/17 04:00 Labs: Laboratory Results - last 24 hr 06/29/17 06/29/17 06/29/17 04:00 04:50 04:50 WBC 8.8 RBC 3.05 L Hgb 8.5 L Hct 26.4 L MCV 86.6 MCH 27.9 L MCHC 32.2 RDW 17.2 H Plt Count 107 L MPV 10.7 Seg Neutrophils % 82.0 Band Neutrophils % 8.0 H Lymphocytes % 4.0 Monocytes % 6.0 Neutrophils # 7.9 Lymphocytes # 0.4 L Monocytes # 0.5 Nucleated RBCs/100 WBC 1.3 H Platelet Estimate Decreased L PT 14.4 H INR 1.3 Sodium 135 L Potassium 3.7 Chloride 102 Carbon Dioxide 24 BUN 14 Creatinine 0.69 L Est GFR ( Amer) > 60 Est GFR (Non-Af Amer) > 60 BUN/Creatinine Ratio 20 Glucose 117 H Calculated Osmolality 282 Calcium 6.7 L Magnesium 1.9 Total Bilirubin 0.4 AST 19 ALT 10 Alkaline Phosphatase 189 H Serum Total Protein 5.2 L Albumin 2.6 L Globulin 2.6 Albumin/Globulin Ratio 1.0 L 06/29/17 11:40 WBC RBC Hgb 8.2 L Hct 26.3 L MCV MCH MCHC RDW Plt Count MPV Seg Neutrophils % Band Neutrophils % Lymphocytes % Monocytes % Neutrophils # Lymphocytes # Monocytes # Nucleated RBCs/100 WBC Platelet Estimate PT INR Sodium Potassium Chloride Carbon Dioxide BUN Creatinine Est GFR ( Amer) Est GFR (Non-Af Amer) BUN/Creatinine Ratio Glucose Calculated Osmolality Calcium Magnesium Total Bilirubin AST ALT Alkaline Phosphatase Serum Total Protein Albumin Globulin Albumin/Globulin Ratio - Impressions Impressions Abdomen Ultrasound 06/28/17 17:21 IMPRESSION: Large volume abdominal ascites. D/ / Paul Garcia / Paul Garcia Interpreting Provider: Paul Garcia Paracentesis Ultrasound 06/29/17 10:43 IMPRESSION: Successful ultrasound guided paracentesis. D/ / Yanick Gibson MD / Yanick Gibson MD Interpreting Provider: Yanick Gibson MD - ABG Interpretation ABG results: PT/INR, D-dimer PT 14.4 Seconds (9.4-12.1) H 06/29/17 04:50 - Attending Attestation I examined this patient and my medical decision-making was reviewed with the Advanced Practice Nurse. I agree with the documented findings, disposition and treatment plan as described except to the extent set forth below. He underwent therapeutic paracentesis today of 3L. SOB and abdominal pain have improved. Less ascites on exam. He has started Dabrafenib and Mekinist today with good tolerance. If he feels well tomorrow, would recommend d/c with close f/u with Dr. Reynaga.
--- NOTE | 2017-06-29 11:36 | IR Procedure Note ---
Date of procedure: 06/29/17 Consent Obtained: Verbal consent, Written consent Timeout: Correct patient and procedure verified, Correct site verified, Time out performed, Skin prep completed Local anesthetic: Lidocaine 1% Indications: Ascites Procedure Performed: Paracentesis Was there an call center assistant present: No Site/Technique: Ultrasound guided paracentesis Results/Findings: Moderate ascites Estimated blood loss (cc): 2 Complications: None; Tolerated procedure well Post Procedure Treatment Plan: Continue inpatient care Specimen: Moderate ascites
[2017-06-29] MEDS: TRAMETINIB 2 MG PO SCH (11:47)
[2017-06-29] MEDS: DABRAFENIB 75 MG PO SCH ×2 (11:48→20:10)
[2017-06-29] MEDS: predniSONE 20 MG TABLET PO SCH (11:56)
[2017-06-29 12:37] LABS: Hematocrit 26.3 % (37.5-50.1); Hemoglobin 8.2 g/dL (12.9-16.9)
[2017-06-29 22:27] LABS: Hematocrit 25.5 % (37.5-50.1); Hemoglobin 8.2 g/dL (12.9-16.9)
[2017-06-30 03:26] LABS: Mean Corpuscular HGB Conc 31.6 g/dL (31.6-35.5)
[2017-06-30 03:28] LABS: Hematocrit 24.7 % (37.5-50.1); Hemoglobin 7.8 g/dL (12.9-16.9); Immature Platelets 3.9 % (1.1-6.1); Mean Corpuscular Hemoglobin 27.6 pg (28.0-33.3); Mean Corpuscular Volume 87.3 fL (83.0-100.0); Mean Platelet Volume 9.8 fL (9.4-12.4); Monocytes # 0.6 K/mcL (0.0-1.3); Red Blood Count 2.83 M/mcL (4.19-5.50); Red Cell Distribution Width 17.2 % (11.5-14.5)
[2017-06-30 03:29] LABS: Platelet Count 91 K/mcL (140-400)
[2017-06-30 03:44] LABS: Lymphocytes # 0.8 K/mcL (0.6-4.6); Neutrophils # 6.3 K/mcL (1.6-8.9)
[2017-06-30 03:45] LABS: Anisocytosis 1+ (Not Present); Platelet Estimate Decreased (Normal); Polychromasia 1+ (Not Present)
[2017-06-30 03:49] LABS: BUN/Creatinine Ratio 23 (6-26); Blood Urea Nitrogen 16 mg/dL (6-20); Calcium 6.2 mg/dL (8.6-10.3); Carbon Dioxide 23 mEq/L (23-29); Chloride 102 mEq/L (98-107); Glucose 122 mg/dL (70-105); Osmolality,Calculated 278 (280-300); Potassium 3.8 mEq/L (3.5-5.1); Sodium 133 mEq/L (136-145); eGFR For African Americans > 60 (> 60); eGFR For Non-African Americans > 60 (> 60)
[2017-06-30] MEDS: Ipratropium/Albuterol Neb 3 ML IH SCH ×4 (04:09→14:45)
[2017-06-30 07:50] LABS: Mycoplasma pneumoniae IgG 0.91 U/L (<=0.09)
[2017-06-30] MEDS ORDERED: Spironolactone 25 MG TABLET PO SCH (09:00)
[2017-06-30] MEDS ORDERED: *HR* FentaNYL PATCH 50 MCG PATCH TD SCH (09:00)
[2017-06-30] MEDS ORDERED: Furosemide 20 MG TABLET PO SCH (09:00)
[2017-06-30] MEDS: Cefepime HCl 2,000 MG in Water for inj. (sterile) 20 ML 20 ML IVP SCH (09:16)
[2017-06-30] MEDS: TRAMETINIB 2 MG PO SCH (09:16)
[2017-06-30] MEDS: OXcarbazepine 150 MG TABLET PO SCH ×2 (09:17→13:39)
[2017-06-30] MEDS: Levofloxacin 750 MG/150 ML 750 MG/150 ML BAG IVPB SCH (09:18)
[2017-06-30] MEDS: DABRAFENIB 75 MG PO SCH (09:19)
[2017-06-30 09:39] LABS: Hematocrit 27.7 % (37.5-50.1); Hemoglobin 8.9 g/dL (12.9-16.9)
[2017-06-30] MEDS: predniSONE 20 MG TABLET PO SCH (10:38)
[2017-06-30] MEDS ORDERED: Calcium Gluconate 2,000 MG in 0.9 % Sodium Chloride 100 ML IVPB ONE (12:19)
--- NOTE | 2017-06-30 14:24 | Discharge Summary ---
Date of Encounter: 06/30/17 Time of Encounter: 10:40 - Discharge Diagnosis (1) DVT prophylaxis Priority: Primary Status: Acute Comments: SCDs ordered were not placed. Lower extremity ultrasound negative for DVT. (2) Hypokalemia Priority: Secondary Status: Resolved Comments: Resolved. (3) Anemia Priority: Secondary Status: Acute Comments: Anemia of chronic disease. Hemoglobin 8.9 today. Patient will follow with oncology for further evaluation after discharge. Stool occult blood positive, urine negative for blood. Oncology in discussed anemia with Selin, states they will follow on outpatient basis. Will encourage patient to return if he has dark, tarry stools or melena or hematochezia. Qualifiers: Anemia type: unspecified type Qualified Code(s): D64.9 - Anemia, unspecified (4) Sinus tachycardia Priority: Secondary Status: Chronic Comments: Beta khoa was increased, heart rate slowed to near 100. BP borderline hypotensive. Continue at home. Follow with PCP and cardiology if necessary. (5) Metastatic melanoma Priority: Secondary Status: Acute Comments: Follow with oncology outpatient. Pt pain controlled currently. Continue medication regimen. Continue treatment with abrafenib and Tremetinib. (6) HCAP (healthcare-associated pneumonia) Priority: Secondary Status: Acute Comments: Pt reports that he is feeling better and that his SOB has improved. Symptoms improved after paracentesis. CTA chest showed evidence of right upper lobe infiltrate, respiratory infectious panel positive for enterocytes renovate Patient was treated empirically for HCAP With cefepime and vancomycin, he was treated with 1 dose of by mouth steroids. Continue supportive treatment at home, duo nebs, Mucinex 600 mg twice daily as needed for cough and congestion. Will send pt home with antibiotics Levaquin for atypicals and Omnicef for gram negatives/typical. (7) Ascites Priority: Secondary Status: Acute Comments: Patient had abdominal paracentesis, 3 L of serous fluid removed. He did report improvement with his symptoms, likely due to paracentesis and treatment of pneumonia. Follow with oncology. They will monitor for recurrent ascites or need for Pleurx Placement Peripheral edema has improved slightly since admission. Patient will continue Lasix and Aldactone at home for treatment of ascites and peripheral edema. Qualifiers: Ascites type: malignant Qualified Code(s): R18.0 - Malignant ascites Hospital course: Mr. Hale is a 47 year old male with past medical history of hypertension, malignant melanoma with multiple sites of metastases, chronic anemia, sinus tachycardia, history of seizures. Patient presented to the emergency department with increasing shortness of breath. Patient was admitted and treated for HCAP Since he has recently been admitted within the last 90 days. Patient was on oral antibiotics from home. He denies cough, sputum production, fever, but notes dyspnea on exertion. Patient also reports abdominal bloating and history of abdominal pain which is at his baseline. He denies melena or hematochezia. He denies headache, vision changes, chest pain or shortness of breath. Patient's abdomen distended and firm, abdominal ultrasound showed large amount of ascites, interventional radiology perform paracentesis yesterday. Patient experienced improvement in his symptoms and states that he is feeling much better. She was treated for HCAP with IV antibiotics, by mouth prednisone was added by oncology due to high risk of complications from immunotherapy. In trending patient's anemia, today it increased from 7.8-8.9. Patient states he is tired of being here. He becomes upset when I tell him I need to stay in trend his hemoglobin and hematocrit. He is adamant that he wants to go home and is aware that he is not finished antibiotic treatment IV. Discussed by mouth treatment with pharmacy, patient will be treated with Levaquin 750 mg for 10 days, Omnicef 300 mg by mouth twice a day 7 days. Patient had positive stool occult blood, oncology [facility] discussed with Selin who states they will follow outpatient. Patient's pain is under control and he will continue current pain medication regimen. His beta khoa has been increased, continue at home. Aldactone ordered for blood pressure as well as peripheral edema. He has an appointment with oncology next week, he is encouraged to return immediately if symptoms return or worsen, if he has hematochezia, melena, or bright red bleeding per rectum. Patient is insisting on going home, we did discuss signing out AGAINST MEDICAL ADVICE, which he did not do. Patient has good support at home and follow-up appointment with oncology. Patient is ready for discharge. Discharge discussed with: patient, family, nurse - Time Spent with Patient Total time spent providing and/or coordinating discharge services: Less than 30 minutes - Discharge Medications Prescriptions: Cefdinir [Omnicef] 300 mg PO BID #14 capsule Guaifenesin [Guaifenesin ER] 600 mg PO BID PRN #60 tab.er.12h PRN Reason: Cough levoFLOXacin [Levaquin] 750 mg PO DAILY #9 tablet predniSONE [PredniSONE] 20 mg PO DAILY #8 tablet Spironolactone [Aldactone] 25 mg PO DAILY #30 tablet Home Medications: OXcarbazepine [Trileptal] 300 mg PO TID 04/21/17 [History] Ondansetron [Zofran] 8 mg PO Q8HR PRN #60 tablet 05/15/17 [Rx] FentaNYL PATCH [Duragesic] 50 mcg TD Q72H 3 Days #1 patch.td72 06/07/17 [Rx] Metoprolol [Lopressor] 25 mg PO BID #60 tablet 06/26/17 [Rx] Polyethylene Glycol 3350 [MiraLAX] 17 gm PO DAILY PRN #30 powd.pack 06/26/17 [Rx ] Oxycodone HCl [Oxaydo] 5 - 10 mg PO Q6H PRN 06/28/17 [History] Cefdinir [Omnicef] 300 mg PO BID #14 capsule 06/30/17 [Rx] Furosemide [Lasix] 20 mg PO DAILY tablet 06/30/17 [Rx] Guaifenesin [Guaifenesin ER] 600 mg PO BID PRN #60 tab.er.12h 06/30/17 [Rx] Spironolactone [Aldactone] 25 mg PO DAILY tablet 06/30/17 [Rx] Spironolactone [Aldactone] 25 mg PO DAILY #30 tablet 06/30/17 [Rx] levoFLOXacin [Levaquin] 750 mg PO DAILY #9 tablet 06/30/17 [Rx] predniSONE [PredniSONE] 20 mg PO DAILY #8 tablet 06/30/17 [Rx] Allergies/Adverse Reactions: 3 Allergy/AdvReac Type Severity Reaction Status Date / Time No Known Allergies Allergy Verified 06/28/17 06:56 Date of admission: 06/28/17 07:32 Primary care physician: PCP NONE Consults: 06/28/17 08:39 Consult to Oncology [CONS] Routine Consulting Provider: [facility] Reason for Consult: Dr. Pennington of Oncology Call Completed: No 06/28/17 09:38 Consult to PICC team [Consult to Invasive Line Access Team] [CONS] Routine Reason for Consult: limited IV access and for blood draws Line Type: EPIV 06/29/17 10:43 Consult to Interventional Radiology [CONS] Routine Consulting Provider: Radiology [facility] Reason for Consult: Paracentesis Call Completed: Yes Discharging clinician: Maylin Mendoza Anticipated date of discharge: 06/30/17 - Constitutional Vitals: Temp Pulse Resp BP Pulse Ox 98.6 F 104 17 94/61 95 06/30/17 11:29 06/30/17 11:29 06/30/17 11:29 06/30/17 11:29 06/30/17 11:29 General appearance: Present: cooperative, mild distress, A&O X 3, pleasant, no acute distress, answers questions appropriately - Head Head exam: Present: atraumatic, normal inspection, normocephalic - Eye Eye exam: Present: normal appearance, conjuntiva pink, sclera anicteric - Neck Neck exam general surgery: Present: lymphadenopathy, supple, trachea midline - Respiratory Respiratory exam: Present: decreased breath sounds, CTAB. Absent: accessory muscle use, chest wall tenderness, rales, respiratory distress, rhonchi, wheezes - Cardiovascular Cardiovascular exam: Present: RRR, +S1, +S2. Absent: diastolic murmur, gallop, rubs, systolic murmur - GI/Abdominal GI/Abdominal exam: Present: normal bowel sounds, soft. Absent: distended, hepatomegaly, tenderness - Extremities Exam Extremities exam: Present: normal capillary refill, normal inspection, warm, radial pulses palpable and symmetrical. Absent: calf tenderness, cyanotic, pedal edema, tenderness - Neurological Exam Neurological exam: Present: alert, oriented X3, no focal deficits. Absent: facial droop, speech deficit - Skin Skin exam: Present: dry, intact, normal color, warm. Absent: rash - Patient Status Disposition: Home, Self-Care Condition: Fair Functional capacity at discharge: uses cane/walker Overall status at discharge: patient is progressing back to baseline - Discharge Instructions Follow Up With: Zeus Bowen MD [Partnered Physician] - 07/03/17 8:00 am Additional Instructions: Please take your prescriptions as directed. REsume your normal home medications. Return to the ER as needed for any other problems or concerns or if your symptoms return or worsen. Follow with oncology as scheduled. Return to your normal diet as tolerated. - Diet and Activity Activity: increase activity as tolerated Diet: advance to your usual diet
[2017-06-30 15:20] VITALS: BP 101/67
--- NOTE | 2017-06-30 16:19 | Oncology Office Progress Note ---
Date of Service: 06/30/17 Chief Complaint: melanoma Primary Care Provider: PCP NONE Oncology History: Patient is breathing better today. He denies any pain and appears comfortable. Review Of Systems Provider Comments:: A 12 point review of systems was performed. Pertinent positives and negatives are listed below and in the history of present illness. All other systems negative. - Medications and Allergies Prescriptions: Cefdinir [Omnicef] 300 mg PO BID #14 capsule Guaifenesin [Guaifenesin ER] 600 mg PO BID PRN #60 tab.er.12h PRN Reason: Cough levoFLOXacin [Levaquin] 750 mg PO DAILY #9 tablet predniSONE [PredniSONE] 20 mg PO DAILY #8 tablet Spironolactone [Aldactone] 25 mg PO DAILY #30 tablet Home Medications: OXcarbazepine [Trileptal] 300 mg PO TID 04/21/17 [History] Ondansetron [Zofran] 8 mg PO Q8HR PRN #60 tablet 05/15/17 [Rx] FentaNYL PATCH [Duragesic] 50 mcg TD Q72H 3 Days #1 patch.td72 06/07/17 [Rx] Metoprolol [Lopressor] 25 mg PO BID #60 tablet 06/26/17 [Rx] Polyethylene Glycol 3350 [MiraLAX] 17 gm PO DAILY PRN #30 powd.pack 06/26/17 [Rx ] Oxycodone HCl [Oxaydo] 5 - 10 mg PO Q6H PRN 06/28/17 [History] Cefdinir [Omnicef] 300 mg PO BID #14 capsule 06/30/17 [Rx] Furosemide [Lasix] 20 mg PO DAILY tablet 06/30/17 [Rx] Guaifenesin [Guaifenesin ER] 600 mg PO BID PRN #60 tab.er.12h 06/30/17 [Rx] Spironolactone [Aldactone] 25 mg PO DAILY tablet 06/30/17 [Rx] Spironolactone [Aldactone] 25 mg PO DAILY #30 tablet 06/30/17 [Rx] levoFLOXacin [Levaquin] 750 mg PO DAILY #9 tablet 06/30/17 [Rx] predniSONE [PredniSONE] 20 mg PO DAILY #8 tablet 06/30/17 [Rx] Allergies/Adverse Reactions: 3 Allergy/AdvReac Type Severity Reaction Status Date / Time No Known Allergies Allergy Verified 06/28/17 06:56 Code Status: Full Code Past Medical History: asthma, kidney stones, malignancy, seizures Other History: Possible heart attack Surgical History: orthopedic, other, other Smoking Status: Never smoker Smokeless Tobacco Status: No Alcohol use: none Drug use: none Family History -Oncology: cancer, diabetes Vital Signs 3 Temperature 98.0 F 06/30/17 15:19 Temperature Source Oral 06/30/17 15:19 Pulse Rate 112 06/30/17 15:19 Pulse Rhythm Regular 06/30/17 10:06 Respiratory Rate 17 06/30/17 15:19 Respiratory Effort Spontaneous 06/30/17 10:06 Respiratory Depth Normal 06/30/17 10:06 Respiratory Pattern 06/30/17 10:06 Blood Pressure 101/67 06/30/17 15:19 Blood Pressure Position HOB Elevated 06/30/17 15:19 Oxygen Delivery Method Room Air 06/30/17 15:19 O2 Sat by Pulse Oximetry 95 06/30/17 15:19 3 Weight 97.125 kg ECO Physical Exam: General: Alert and oriented, well appearing. Mental Status: Affect appropriate for circumstances HEENT: Sclerae anicteric. No mucositis or thrush. No other oral lesions or erythema. Skin: No rashes or petechiae. Lymph nodes: No cervical, supraclavicular, axillary, or inguinal adenopathy. Lungs: Clear to auscultation and percussion bilaterally. Cardiovascular: Regular rate and rhythm. No gallops, murmurs, or rubs. Abdomen: Soft, nontender; no organomegaly or masses palpable. Extremities: No edema. No calf swelling or tenderness. No joint deformity. Neurologic: Alert, cranial nerves II-XII intact; no focal weakness or sensory abnormalities. Oncology - Results Labs: Short CBC 06/29/17 06/30/17 06/30/17 Range/Units 22:10 03:05 09:27 WBC 7.7 (4.3-11.1) K/mcL Hgb 8.2 L 7.8 L 8.9 L (12.9-16.9) g/dL Hct 25.5 L 24.7 L 27.7 L (37.5-50.1) % Plt Count 91 L (140-400) K/mcL Neutrophils # 6.3 (1.6-8.9) K/mcL BMP 06/30/17 03:05 Sodium 133 L Potassium 3.8 Chloride 102 Carbon Dioxide 23 BUN 16 Creatinine 0.71 Glucose 122 H Calcium 6.2 L - Assessment Assessment: Malignant melanoma, metastatic status post bony lesion status post palliative radiation, status post immunotherapy with progressive disease patient has been hospitalized twice with symptoms of abdominal pain due to progressive metastatic disease, enteritis, recent hospitalization due to shortness of breath due to possibly worsening pulmonary metastatic disease. He has improved on steroids antibiotics. His treatment has been changed and patient is receiving a combination of BRAF and MEK inhibitors. He will follow-up with me in the clinic as an outpatient for lab check and to assess any side effects. Charges - Provider Provider: Dr. Almas Bowen - Established Patient Established Patient Charges: Established Patient [id number]
[2017-06-30] MEDS ORDERED: Aminoglycoside Consult 1 EACH MC ONE (17:04)
== END 2017-06-30 17:05 | disposition home or self-care (01) ==
LOC: EMEROO 03:03 → 3BNU 03:03
PROVIDERS: ADMIT Pediatrics; ATTEND Registered Nurse